=== PATIENT | female | born 1965 | race Caucasian/White ===

== ENCOUNTER 2019-11-25 09:43 | Emergency (ER) | payer SELFPAY ==
[2019-11-25 09:46] VITALS: BP 142/81; PULSE 107; RESP 20; TEMP 37.2; O2SAT 99; BMI 36.6
--- NOTE | 2019-11-25 09:49 | DI.RAD.S_ITS ---
PROCEDURE: XR CHEST 2V INDICATIONS: cough, fever TECHNIQUE: 2 views of the chest were acquired. COMPARISON: [facility], , CHEST 2 VIEW, 07/22/2013, 14:12. FINDINGS: Surgical changes and devices: A right-sided Port-A-Cath central line is identified with the tip overlying the high superior vena cava. Lungs and pleura: The original the lungs has significantly improved in the interim. No definite area pulmonary consolidation is identified. However, interstitial prominence within the right infrahilar region is noted. There is no effusion or pneumothorax. Mediastinum: Mediastinal contours are normal. Heart size is normal. There is aortic atherosclerosis. Bones and chest wall: No suspicious bony abnormalities. Soft tissues appear unremarkable. IMPRESSION: Vague interstitial prominence within the right infrahilar region may represent pneumonia. Please correlate clinically. Dictated by: Hossein Lopez M.D. on 11/25/2019 at 9:13 Approved by: Hossein Lopez M.D. on 11/25/2019 at 9:14
--- NOTE | 2019-11-25 09:51 | ED_ITS ---
HPI - URI/Sore Throat General Chief Complaint: Upper Respiratory Symptoms Stated Complaint: cold/bad tooth Time Seen by Provider: 11/25/19 09:43 Source: patient Mode of arrival: Ambulatory Limitations: no limitations History of Present Illness HPI Narrative: 54-year-old female smoker presents with a chief complaint of about 2 weeks of runny nose, sore throat and cough with occasional sputum production subjective fever and chills. She denies any headache or N/V. Additionally she complains of poor widespread dentition and fluctuant mass next to her premolars on the left bottom which she was able to successfully drain an abscess with a sterilized pin. She has significant improvement in her pain and swelling but also is concerned for obvious reasons about a dental abscess. MD Complaint: fever and cough Onset (ago): week(s) Duration: constant Severity: moderate Relieving factors: nothing Exacerbating factors: nothing Description of mucous: yellow Able to tolerate fluids by mouth: Yes Associated symptoms: fever, nasal congestion, sore throat and cough Treatments prior to arrival: none Related Data Home Medications Medication Instructions Recorded Confirmed [TRANSDERMAL COMPOUND] 0 unit TOPICAL BID #0 04/11/11/25/19 methadone 10 mg PO DAILY 11/25/19 11/25/19 oxycodone 20 mg PO Q4H 11/25/19 11/25/19 Previous Rx's Medication Instructions Recorded clindamycin HCl 300 mg PO TID 10 Days #30 cap 11/25/19 doxycycline hyclate 100 mg PO BID #20 tab 11/25/19 Allergies Allergy/AdvReac Type Severity Reaction Status Date / Time PENICILLIN Allergy Unknown Uncoded 01/06/18 13:04 From VICODIN AdvReac Unknown Uncoded 01/06/18 13:04 Review of Systems Constitutional Constitutional: Reports chills, Denies fatigue, Reports fever(s) (Now resolved), Denies frequent falls, Denies lethargy and Denies weakness Eyes Eyes: Denies change in vision, Denies eye discharge, Denies irritation and Denies loss of vision ENT Ears, Nose, Mouth, and Throat: Denies change in voice, Reports dental pain, Denies dizziness, Denies neck pain, Reports sore throat and Denies throat swelling Cardiovascular Cardiovascular: Denies chest pain, Denies irregular heart rhythm, Denies lightheadedness, Denies palpitations, Denies dyspnea, Denies dyspnea on exertion and Denies orthopnea Respiratory Respiratory: Reports cough, Denies dyspnea, Denies dyspnea on exertion and Denies wheezing Gastrointestinal Gastrointestinal: Denies abdominal pain, Denies change in bowel habits, Denies diarrhea, Denies nausea and Denies vomiting Genitourinary Genitourinary: Denies hematuria, Denies flank pain, Denies urinary incontinence and Denies urinary urgency Musculoskeletal Musculoskeletal: Denies back pain, Denies muscle weakness, Denies neck pain, Denies numbness and Denies tingling Integumentary/Breasts Skin/Breast: Denies pruritus, Denies erythema, Denies rash and Denies wounds Neurologic Neurologic: Denies behavioral changes, Denies confusion, Denies dizziness, Denies frequent falls, Denies loss of vision, Denies numbness, Denies tingling and Denies weakness Psychiatric Psychiatric: Denies anxiety, Denies behavioral changes, Denies confusion, Denies depression, Denies homicidal ideation and Denies suicidal ideation Endocrine Endocrine: Denies fatigue, Denies flushing and Denies palpitations Hematologic/Lymphatic Hematologic/Lymphatic: Denies easy bruising Allergic/Immunologic Allergic/Immunologic: Denies urticaria, Denies throat swelling and Denies wheezing Patient History Social History Smoking Status: Current every day smoker Smoking Status: Current every day smoker Exam Narrative Exam Narrative: GENERAL: [54] year old patient appears stated age. Well- nourished, well-developed patient, in mild distress. HEAD: Atraumatic. Normocephalic. EYES: Pupils equal round and reactive. Extraocular motions intact. No scleral icterus. No injection or drainage. ENT: Nose without bleeding, purulent drainage. Throat without erythema, tonsillar hypertrophy or exudate though there is some postnasal drip. Airway patent. Poor widespread dentition, suspect resolving abscess adjacent to left lower premolars, no longer any fluctuance but minimal swelling and tenderness. No facial swelling NECK: Trachea midline. Non tender CARDIOVASCULAR: Regular rate and rhythm without murmurs, gallops, or rubs. RESPIRATORY: Prolonged expiratory phase with decreased breath sounds bilaterally, a harsh cough can be noted from the door GASTROINTESTINAL: Abdomen soft, non-tender, nondistended. EXTREMITIES: No edema or joint tenderness. BACK: Nontender without deformity or crepitance. No flank tenderness. NEURO: AOx3. SKIN: No rash or erythema of visible areas Initial Vital Signs Initial Vital Signs: Vital Signs Temperature 98.9 F 11/25/19 09:46 Pulse Rate 107 H 11/25/19 09:46 Respiratory Rate 20 11/25/19 09:46 Blood Pressure 142/81 H 11/25/19 09:46 Pulse Oximetry 99 11/25/19 09:46 Course Orders Ordered: ED Orders 11/25/19 09:49 XR chest 2V Stat 11/25/19 09:51 Influenza A & B (PCR) Stat Vital Signs Vital signs: Vital Signs - 8 hr 11/25/19 09:46 Temperature 98.9 F Pulse Rate 107 H Respiratory Rate 20 Blood Pressure 142/81 H Pulse Oximetry 99 MDM - URI/Sore Throat Lab Data Labs: Lab Results 11/25/19 Range/Units 09:51 Influenza A (RT-PCR) Flu a negative (NEGATIVE) Influenza B (RT-PCR) Flu b negative (NEGATIVE) Discharge Plan Departure Patient Disposition: Home Clinical Impression: Dental abscess Pneumonia Qualifiers: Pneumonia type: due to unspecified organism Laterality: right Lung location: middle lobe of lung Qualified Code(s): J18.9 - Pneumonia, unspecified organism Discharge Date/Time: 11/25/19 10:59 Instructions: DI for Pneumonia -- Adult Activity Restrictions/Additional Instructions: *You have been diagnosed with [right middle lobe pneumonia and dental abscess] *What to do: *Take medications as directed *Follow up with your primary care provider in 2-3 days, call for an appointment. Let them know you were seen in the Emergency Department and that we ask that you be seen in follow up *Return to ER if you should have any new, worsening or concerning symptoms Prescriptions: New doxycycline hyclate 100 mg tablet 100 mg PO BID Qty: 20 RF: 0 clindamycin HCl 300 mg capsule 300 mg PO TID 10 Days Qty: 30 RF: 0 No Action [TRANSDERMAL COMPOUND] 0 unit topical BID Qty: 0 RF: 0 methadone 5 mg tablet 10 mg PO DAILY RF: 0 oxycodone 20 mg tablet 20 mg PO Q4H RF: 0 Stand Alone Forms: Work Release Note, Work/School Release
[2019-11-25 10:39] LABS: Influenza A - CEPHEID Flu A NEGATIVE (NEGATIVE); Influenza B - CEPHEID Flu B NEGATIVE (NEGATIVE)
[2019-11-25 10:57] VITALS: BP 115/76; PULSE 99; RESP 18; O2SAT 100
== END 2019-11-25 10:59 | disposition home or self-care (01) ==
PROVIDERS: Emergency Provider Emergency Medicine; Family Provider Physician Assistant
DX: J18.9 Pneumonia, unspecified organism (principal); K04.7 Periapical abscess without sinus
CPT/HCPCS: 71046; 87502; 99283

== ENCOUNTER 2024-08-29 11:28 | Emergency (ER) | payer OTHER, MEDICAID, SELFPAY ==
[2024-08-29] VITALS (15 sets, daily range): BP systolic 110–130; BP diastolic 55–67; PULSE 82–115; RESP 20; TEMP 36.8; O2SAT 56–97; BMI 37.5
--- NOTE | 2024-08-29 11:52 | DI.RAD.S_ITS ---
PROCEDURE: XR CHEST 1V INDICATIONS: wants port Deaccessed at VM left AMA, hypoxia TECHNIQUE: One view of the chest was acquired. COMPARISON: [facility], CR, XR CHEST 2V, 11/25/2019, 9:52. FINDINGS: Surgical changes and devices: Right chest wall port tip projects over the low SVC. Lungs and pleura: Left greater than right multifocal airspace opacities. Peribronchial cuffing. Mediastinum: Mediastinal contours appear normal. Heart size is normal. Bones and chest wall: No suspicious bony lesions. Overlying soft tissues appear unremarkable. IMPRESSION: Left greater than right multifocal airspace opacities, concerning for multifocal pneumonia, aspiration or, drug reaction, less likely pulmonary edema. Dictated by: Tom Montaño M.D. on 08/29/2024 at 12:19 Approved by: Tom Montaño M.D. on 08/29/2024 at 12:19
--- NOTE | 2024-08-29 11:53 | EKG_ITS ---
[address] [address] Test Date: 2024-08-29 Pat Name: Mya Jj Department: Room: Gender: Female Distance Education Director: OP : 1965 Requested By: Order Number: [id number] Reading MD: Jesus Wang MD Measurements Intervals [place] Rate: 97 P: 112 OK: 118 QRS: 190 QRSD: 88 T: 185 QT: 346 QTc: 439 Interpretive Statements Suspect arm lead reversal, interpretation assumes no reversal Normal sinus rhythm Right superior axis deviation Inferior infarct , age undetermined NO PRIOR TRACING Electronically Signed On 08-30-2024 10:34:58 PST by Jesus Wang MD
--- NOTE | 2024-08-29 12:17 | PC.NURSE ---
Pt states that she left [facility] on Thursday08/28/2024. States that [facility]. Pt states that she had 2 heart attacks for which the 2nd heart attack she coded and was trached. States that she would like to have her port de-accessed and that she would like us to clean her feeding tube. Also states that she has some abd pain. Pt requiring 3L NC to maintain O2 sat above 92% and pt tachypneic. Pt would also like to speak with [employer] regarding resources for home health. Pt anxious and fidgeting. Pt a&ox4.
[2024-08-29 12:25] LABS: Add Manual Diff / Slide Review NO; Basophils Absolute Auto 100 /uL (0-100); Basophils Percent Auto 0.9 % (0-2); Eosinophils Absolute Auto 300 /uL (0-450); Eosinophils Percent Auto 3.3 % (2-4); Hematocrit 28.5 % (36-46); Hemoglobin 9.3 g/dL (12.0-16.0); Lymphocytes Absolute Auto 1600 /uL (1100-4500); Lymphocytes Percent Auto 16.1 % (25-40); Mean Corpuscular HGB Conc 32.6 % (30-36); Mean Corpuscular Hemoglobin 30.6 PG (26-34); Mean Corpuscular Volume 93.8 fL (80-100); Monocytes Absolute Auto 1200 /uL (0-900); Monocytes Percent Auto 12.6 % (3-14); Neutrophils Absolute Auto 6500 /uL (1500-7000); Neutrophils Percent Auto 67.1 % (50-75); Platelet Count 508 X10^3/uL (150-400); Red Blood Cell Count 3.04 X10^6/uL (4.0-5.2); Red Cell Distribution Width 16.9 % (11.6-14.8); White Blood Cell Count 9.6 X10^3/uL (4.5-11.0)
--- NOTE | 2024-08-29 12:31 | ED.GENADULT ---
HPI - General Adult General Chief complaint: Abdominal Pain Stated complaint: abd px, wants pic line removed Time Seen by Provider: 08/29/24 11:52 Source: patient Mode of arrival: Wheelchair History of Present Illness HPI narrative: 59-year-old female who presents with complaint of wanting her port de-accessed/removed. Patient states she was at [facility] 468 days for 2 heart attacks had a trach in place she left against medical advice but was supposed to be discharged potentially this Thursday. She states she was discharged home on home O2 although she does not have it with her. Patient is alert, she was appropriate she was not able to answer all questions about her hospitalization but notes she was not conscious for large portions of it states she really does not wish to be here. She states she was discharged with prescriptions, oxygen in his CPAP machine. Patient states her take was removed during her hospitalization, still has a PEG tube but they were not using it she has been eating and drinking. She does note some abdominal pain but denies fevers, no chest pain or shortness of breath. No nausea or vomiting. She denies any GI or urinary symptoms currently. Related Data Home Medications Medication Instructions Recorded Confirmed [TRANSDERMAL COMPOUND] 0 unit topical BID ##0 04/11/11/25/19 methadone 5 mg tablet 10 mg PO DAILY 11/25/19 11/25/19 oxycodone 20 mg tablet 20 mg PO Q4H 11/25/19 11/25/19 Previous Rx's Medication Instructions Recorded doxycycline hyclate 100 mg tablet 100 mg PO BID #20 tabs 11/25/19 amoxicillin 875 mg-potassium 1 tab PO BID #20 tabs 08/29/24 clavulanate 125 mg tablet apixaban 5 mg tablet 5 mg PO BID #20 tabs 08/29/24 lidocaine 4 % topical patch 1 patch topical DAILY PRN pain #10 08/29/24 ea metoprolol tartrate 25 mg tablet 12.5 mg (1/2 x 25 mg) PO BID #20 08/29/24 tabs quetiapine 25 mg tablet 75 mg (3 x 25 mg) PO TID #30 tabs 08/29/24 Allergies Allergy/AdvReac Type Severity Reaction Status Date / Time PENICILLIN Allergy Unknown Uncoded 01/06/18 13:04 From VICODIN AdvReac Unknown Uncoded 01/06/18 13:04 Review of Systems Review of Systems ROS Unobtainable: All systems reviewed & are unremarkable except as noted in HPI and below Patient History Social History Smoking Status: Current every day smoker Smoking Status: Current every day smoker tobacco type: cigarettes alcohol intake frequency: 0-2 drinks per day Substance Use Type: does not use Exam Narrative Exam Narrative: GENERAL: Alert and oriented x three, female in mild distress HEENT: Head normocephalic, atraumatic, EOMI, pupils reactive, face symmetric, moist mucous membranes NECK: Supple, full range of motion, patient has a bandage over what appears to be trach site. Did not want for me to remove it. CARDIOVASCULAR: Slightly tachycardic Regular rate and rhythm without murmurs, rubs or gallops. RESPIRATORY: Breath sounds equal bilaterally, no wheezes rales or rhonchi. No tachypnea or accessory muscle use. ABDOMEN: Soft, patient has some mild left upper quadrant tenderness on exam. She has a PEG tube in place. The genital skin looks very well but there is a small amount of drainage around the PEG tube itself. Normoactive bowel sounds all 4 quadrants. No guarding or rebound, rigidity, no mass : No CVA tenderness EXTREMITIES: Normal range of motion, no clubbing or edema. Neurovascularly intact NEUROLOGICAL: Cranial nerves II through XII grossly intact. Moving all extremities. Patient is ambulating without issue. SKIN: Warm, dry, no petechiae, no rashes or lesions. Initial Vital Signs Initial Vital Signs: Vital Signs Pulse Rate 114 H 08/29/24 11:40 Pulse Oximetry 82 L 08/29/24 11:40 Oxygen Delivery Method Room Air 08/29/24 11:40 Course Orders Ordered: ED Orders 08/29/24 11:50 Consult to ANESTHESIOLOGIST - Audio Visual Arts Director Stat 08/29/24 11:52 XR chest 1V Stat 08/29/24 11:53 EKG-12 Lead Stat 08/29/24 12:07 Complete Blood Count AUTO DIFF Stat Comprehensive Metabolic Panel Stat Lactate (Lactic Acid) Stat NT-proBNP (BNP-Adult 18+) Stat PTT Partial Thromboplastin Antolin Stat Procalcitonin Stat Prothrombin Time INR Stat Troponin & CK Cardiac Panel Stat 08/29/24 12:51 Blood Culture Stat 08/29/24 12:59 Wound Culture and Gram Stain Stat 08/29/24 13:01 CT abdomen pelvis w con Stat 08/29/24 14:20 Consult to Home Health Stat 08/29/24 14:43 Home O2 [Evaluate for home oxygen] NOW 08/29/24 14:56 Urinalysis and Microscopic Stat 08/29/24 15:00 Trop I [Troponin I] Stat Discontinued Medications Furosemide (Furosemide 40 Mg/4 Ml Vial) 40 mg IV NOW ONE Stop: 08/29/24 14:09 Last Admin: 08/29/24 14:15 Dose: 40 mg Documented By: MARTHA Furosemide (Furosemide 40 Mg Tablet) 40 mg PO NOW ONE Stop: 08/29/24 14:50 Last Admin: 08/29/24 14:53 Dose: 40 mg Documented By: MARTHA Heparin Sodium (Porcine) (Heparin 500 Unit/5 Ml Port Flush) 500 unit IV PRN PRN PRN Reason: Flush Lorazepam (Lorazepam 0.5 Mg Tablet) 0.5 mg PO NOW ONE Stop: 08/29/24 13:17 Last Admin: 08/29/24 13:20 Dose: 0.5 mg Documented By: MARTHA Lorazepam (Lorazepam 0.5 Mg Tablet) 0.5 mg PO NOW ONE Stop: 08/29/24 15:36 Last Admin: 08/29/24 15:38 Dose: 0.5 mg Documented By: MARTHA Vital Signs Vital signs: Vital Signs - 8 hr 08/29/24 11:40 08/29/24 11:41 08/29/24 11:41 Temperature Pulse Rate 114 H 112 H Respiratory Rate Blood Pressure 130/67 Pulse Oximetry 82 L 83 L Oxygen Delivery Method Room Air Oxygen Flow Rate 08/29/24 11:46 08/29/24 11:55 08/29/24 12:00 Temperature 98.2 F Pulse Rate 115 H 98 H Respiratory Rate 20 Blood Pressure 130/67 129/60 Pulse Oximetry 80 L 96 Oxygen Delivery Method Room Air Nasal Cannula Oxygen Flow Rate 3 08/29/24 12:44 08/29/24 12:48 08/29/24 12:48 Temperature Pulse Rate 110 H 93 H Respiratory Rate Blood Pressure 127/60 Pulse Oximetry 56 L 95 Oxygen Delivery Method Oxygen Flow Rate 08/29/24 13:00 08/29/24 13:00 08/29/24 13:30 Temperature Pulse Rate 92 H Respiratory Rate Blood Pressure 113/55 L Pulse Oximetry 95 96 Oxygen Delivery Method Nasal Cannula Oxygen Flow Rate 3 08/29/24 13:30 08/29/24 13:33 08/29/24 13:33 Temperature Pulse Rate 82 88 Respiratory Rate Blood Pressure 128/61 Pulse Oximetry 96 95 Oxygen Delivery Method Oxygen Flow Rate 08/29/24 13:55 08/29/24 13:55 08/29/24 14:00 Temperature Pulse Rate 87 Respiratory Rate Blood Pressure 113/56 L 110/56 L Pulse Oximetry 97 Oxygen Delivery Method Oxygen Flow Rate 08/29/24 14:00 08/29/24 14:30 08/29/24 15:00 Temperature Pulse Rate 85 87 89 Respiratory Rate Blood Pressure Pulse Oximetry 96 95 96 Oxygen Delivery Method Nasal Cannula Oxygen Flow Rate 3 3 08/29/24 17:33 Temperature Pulse Rate Respiratory Rate 20 Blood Pressure Pulse Oximetry 93 Oxygen Delivery Method Room Air Oxygen Flow Rate 3 Medical Decision Making Lab Data 08/29/24 12:07 08/29/24 12:07 Labs: Lab Results 08/29/24 08/29/24 08/29/24 Range/Units 12:07 14:56 15:00 WBC 9.6 (4.5-11.0) X10^3/uL RBC 3.04 L (4.0-5.2) X10^6/uL Hgb 9.3 L (12.0-16.0) g/dL Hct 28.5 L (36-46) % MCV 93.8 (80-100) fL MCH 30.6 (26-34) PG MCHC 32.6 (30-36) % RDW 16.9 H (11.6-14.8) % Plt Count 508 H (150-400) X10^3/uL Neut % (Auto) 67.1 (50-75) % Lymph % (Auto) 16.1 L (25-40) % [place] % (Auto) 12.6 (3-14) % Eos % (Auto) 3.3 (2-4) % Baso % (Auto) 0.9 (0-2) % Neut # (Auto) 6500 (8240-7381) /uL Lymph # (Auto) 1600 (7564-5262) /uL [place] # (Auto) 1200 H (0-900) /uL Eos # (Auto) 300 (0-450) /uL Baso # (Auto) 100 (0-100) /uL PT 17.3 H (9.4-12.5) SECONDS INR 1.5 H (0.9-1.3) APTT 38 H (25.1-36.5) SECONDS Sodium 132 L (137-145) mmol/L Potassium 4.4 (3.4-5.1) mmol/L Chloride 98 (98-107) mmol/L Carbon Dioxide 26 (22-32) mmol/L BUN 18 H (7-17) mg/dL Creatinine 0.83 (0.52-1.04) mg/dL Estimated GFR > 60 (>60) mL/min BUN/Creatinine Ratio 21.7 (6-22) Glucose 145 H (70-100) mg/dL Lactate 1.2 (0.7-2.1) mmol/L Calcium 8.4 (8.4-10.2) mg/dL Total Bilirubin 0.6 (0.2-1.3) mg/dL AST 36 (14-36) IU/L ALT 24 (<35) IU/L Alkaline Phosphatase 113 (38-126) U/L Total Creatine Kinase 62 (30-135) U/L Troponin I 0.098 H 0.093 H (0.01-0.034) ng/mL NT-Pro-B Natriuret Pep 5410 H (<125) pg/mL Total Protein 7.3 (6.3-8.2) g/dL Albumin 3.8 (3.5-5.0) g/dL Globulin 3.5 (1.7-4.1) g/dL Albumin/Globulin Ratio 1.1 (1.0-2.8) Procalcitonin 0.147 (<0.5) ng/mL Urine Color Yellow Urine Appearance Clear Urine pH 6.0 (4.5-8.0) Ur Specific [place] 1.010 (1.000-1.035) Urine Protein Negative (Negative) Urine Glucose (UA) Negative (Negative) g/dL Urine Ketones Negative (NEGATIVE) Urine Occult Blood Trace-intact (Negative) Urine Nitrate Negative (Negative) Urine Bilirubin Negative (NEGATIVE) Urine Urobilinogen 0.2 (0.2) E.U./dL Ur Leukocyte Esterase Negative (NEGATIVE) Urine RBC 0-1/hpf (0-5/HPF) Urine WBC 1-5/hpf (0-5/HPF) Ur Squamous Epith Cells 5-10 /hpf H (0-5/HPF) Urine Bacteria Many (>30) H (None) Hyaline Casts 0-1/lpf (None) Urine Mucus 2+ H (Negative) Ur Culture Indicated? Cult not indicated Vol Urine Centrifuged 10ml (spun) Imaging Data CT scan - abdomen/pelvis: Radiologist's Impression: Close Abdomen/Pelvis CT (Signed) Tom Montaño - 08/29/24 Chest X-Ray (Signed) Tom Montaño - 08/29/24 [place] [address] CT Scan Report Signed Patient: Mya Jj MR#: [id number] : 1965 Acct:[id number] Age/Sex: 59 / F Date of Service: 08/29/24 Loc: ED Accession Number: [id number] Procedure: CT abdomen pelvis w con Ordering Provider: Radha Bennett D.O. PROCEDURE: CT ABDOMEN PELVIS W CON INDICATIONS: LUQ abd pain, has peg, TECHNIQUE: After the administration of intravenous contrast, axial sections acquired from the lung bases to the pubic symphysis. Coronal and sagittal reformats were performed. For radiation dose reduction, the following was used: automated exposure control, adjustment of mA and/or kV according to patient size. COMPARISON: [facility], CT, CT ANGIO CHEST PE, 06/20/2024, 0:42. FINDINGS: Image quality: Diagnostic. Lower Chest: Perivascular ground-glass nodules. Small, loculated left-sided pleural effusion. ABDOMEN: Liver: No solid mass. Gallbladder: No radiopaque gallstones or wall thickening. Biliary ducts: No biliary dilation. Pancreas: No ductal dilation. Spleen: Size is within normal limits. Adrenal Glands: No adrenal nodules. Kidneys and Ureters: No hydronephrosis. No solid mass. No complex renal cystic lesion which requires follow up. Stomach and Bowel: Normal colonic caliber, without significant wall thickening. Normal appendix. Colonic diverticulosis without evidence of diverticulitis. Percutaneous gastrostomy tube. Peritoneum: No abnormal intraperitoneal fluid. No free air. Ventral Wall: No significant ventral hernia. Abdominal Nodes: No retroperitoneal or mesenteric adenopathy by size criteria. Vessels: Aorta and inferior vena cava are normal in size. PELVIS: Pelvic Organs: Unremarkable. Bladder: Perivesicular fat stranding and wall thickening. Submucosal fat deposition of the bladder wall. Pelvic Nodes: No enlarged lymph nodes. Miscellaneous: No inguinal hernias are seen. Bones: No aggressive osseous abnormality. Degenerative disc disease of the lumbar spine. IMPRESSION: Perivesicular fat stranding and wall thickening, suggestive of cystitis. Correlate with urinalysis. Submucosal fat deposition of the bladder wall is present, usually indicating chronic infection. Colonic diverticulosis without evidence of diverticulitis. Peribronchovascular ground-glass nodules in the lung bases, concerning for atypical pneumonia. Small, loculated left-sided pleural effusion. Dictated by: Tom Montaño M.D. on 08/29/2024 at 14:22 Approved by: Tom Montaño M.D. on 08/29/2024 at 14:25 ECG Data Attestation: I personally reviewed and interpreted this ECG as follows: Interpretation: Sinus rhythm, rate of 97 AL 118 QRS 88 QTC of [address] changes. MDM Narrative Medical decision making narrative: 59-year-old female with recent hospitalization [facility] sounds like she had a significant prolonged hospitalization patient had VFib arrest, STEMI hospitalization was ultimately discharged but developed aspiration had prolonged respiratory failure and had a trach and feeding tube placed. She reports having left Against Medical Advice yesterday morning but is still requiring oxygen. Took some time to obtain these records but ultimately were able to. He was reviewed. Patient did improve her O2 to 96% on 3 L nasal cannula. Evaluation was made with the patient while on O2, tachycardia also improved. She was ambulating about the department without issue. Chest x-ray shows possible multifocal pneumonia CBC shows a white count of 9.6 hemoglobin of 9.3 platelets of 508, patient's other chemistries are still pending. Discussed I would like patient to stay for these and to get further information. INR is 1.5 sodium is 132 potassium 4.4 chloride 98 CO2 of 26 BUN 18 creatinine 0.83 glucose of 145 lactate 1.2 LFTs are negative troponin 0.098 with a BNP of 5410, procalcitonin 0.147. Repeat troponin is stable at 0.093 CT abdomen pelvis obtained as patient has been having some left upper quadrant tenderness. She has a PEG tube in place. Perivesicular fat stranding and wall thickening suggesting cystitis submucosal fat disposition bladder wall present usually indicating chronic infection, colonic diverticulosis without evidence diverticulitis peribronchovascular ground-glass nodules on lung base concerning for atypical pneumonia. Small loculated left-sided pleural effusion. Culture was obtained from around the PEG tube. There has no surrounding cellulitis on exam. There is a scant amount of drainage. Patient states she was going to talk to a friend, she states she will be back and 5 minutes and did return. Her friend who she was staying with did also eventually return as well. Reviewed with the patient her troponin is indeterminate but it will have any priors for comparison would like to repeat she was tender on examination like to obtain a CT abdomen pelvis. ANESTHESIOLOGIST met with patient and friend at bedside they are interested in home health care would be happy to provide. Patient is able to maintain with 2-3 L of O2 without any hypoxia, her tachycardia is not present. Respiratory therapy evaluated patient can set up for home O2. Discussed with patient was finally able to obtain her discharge results had pretty significant hospital stay but appears that she was discharged home on room air. She was discharged home on 81 mg aspirin atorvastatin 40 mg daily, ticagrelor 90 mg twice daily on apixaban 5 mg twice daily as well as metoprolol 12.5 mg daily and spironolactone 12.5 mg daily patient is also continue with quetiapine 75 mg every 8 hours and valproic acid 100 mg 3 times a day. Patient does not express any thoughts to harm herself or others she is accompanied by a friend who she has been staying with. There maybe a component of fluid overload and she should be seen promptly has not outpatient if she is not willing to stay. She likely has a component of CHF on top of her multifocal pneumonia that is appears to be stable or improving according to comparison of her chart and today. Discussed with patient she was not agreeable to stay here or to be transferred back. Sounds like she was still on O2 when she was discharged and not discharged home on oxygen but does have a CPAP. Her friend is at bedside she was staying with would be agreeable to home health care if available. ANESTHESIOLOGIST also setting up follow up with primary care in the short term as patient does not have anyone in place. RT setting up home O2. Patient's labs are fairly stable from what I can tell but her BNP is somewhat elevated. She was missing her several of her medications including her diuretics spironolactone. Her friend and I reviewed her home medications she was missing several so we will send these to the pharmacy Has potential cystitis on CT imaging as well as urinalysis.. So we will give an oral antibiotic. Strict return precautions discussed with patient do not recommend that she be discharged home but she was adamant although she has been working with her friend and been agreeable to treatment here in the department. Nursing also flushed her PEG tube. Her port was accessed, had difficulty with flushing or pulling blood off of it for repeat troponin was flushed with heparin but may not be effective. Discharge Plan Departure Patient Disposition: Home Clinical Impression: Hypoxemia Activity Restrictions/Additional Instructions: It is recommended that you stay for further evaluation but your labs overall are stable although you appear to have some potential fluid overload and your requiring oxygen today. As you have elected to discharge home you have been set up with home O2 with respiratory therapy. Your workup today does show some changes consistent with UTI, you have been prescribed an antibiotic. Our high school social studies tutor is setting up a follow up appointment with you with primary care. They will touch base about the time and date of your appointment. Sent prescriptions for your labs to [facility]. These are based on your medication list from [facility]. You should be taking atorvastatin 40 mg daily Pantoprazole 40 mg daily Valproic acid 1000 mg 3 times daily Quetiapine 75 mg every 8 hours Apixaban 5 mg twice daily Aspirin 81 mg daily Folic acid 1 mg daily Lidocaine 4% topical 1 patche daily as needed Metoprolol tartrate 12.5 mg twice daily Spironolactone 12.5 mg daily Polyethylene glycol 17 g daily as needed. Prescriptions were sent for your quetiapine, apixaban, metoprolol and lidocaine patches to [facility] in [place]. There has also a new additional antibiotic to take until completed for potential UTI. You can return at any time for new chest pain, shortness of breath, lightheadedness or passing out, fevers, persistent vomiting, new or worsening abdominal back or flank pain or other new or concerning changes. Prescriptions: New quetiapine 25 mg tablet 75 mg PO TID Qty: 30 0RF apixaban 5 mg tablet 5 mg PO BID Qty: 20 0RF metoprolol tartrate 25 mg tablet 12.5 mg PO BID Qty: 20 0RF amoxicillin-pot clavulanate 875-125 mg tablet 1 tab PO BID Qty: 20 0RF lidocaine 4 % adhesive patch,medicated 1 patch topical DAILY PRN (Reason: pain) Qty: 10 0RF No Action [TRANSDERMAL COMPOUND] 0 unit topical BID Qty: 0 Patient Comments: need to confirm if still using and clarify ingredients. 11/25/2019 doxycycline hyclate 100 mg tablet 100 mg PO BID Qty: 20 0RF methadone 5 mg tablet 10 mg PO DAILY Patient Comments: need dose verified. 11/25/2019 oxycodone 20 mg tablet 20 mg PO Q4H Referrals: Ana Rosa Richards PA-C [Family Provider] - Stand Alone Forms: Patient Portal/API, Against Medical Advice, Patient Portal/API/Survey
[2024-08-29 12:32] LABS: INR 1.5 (0.9-1.3); Prothrombin Time 17.3 SECONDS (9.4-12.5)
--- NOTE | 2024-08-29 12:36 | PC.NURSE ---
Addendum entered by Sharon Ratliff R.N. 08/29/24 12:48: 1241 pt arrived back to ED Original Note: Pt states that she wants to leave and everything is taking too long. Dr Bennett at bedside to discuss all the risks involved with leaving AMA. Offered to de-access pt's port and pt refused and walked out. Pt anxious and restless. Declined vitals.
[2024-08-29 12:37] LABS: Lactate (Lactic Acid) 1.2 mmol/L (0.7-2.1)
[2024-08-29 12:38] LABS: Alanine Aminotransferase 24 IU/L (<35); Albumin 3.8 g/dL (3.5-5.0); Albumin Globulin Ratio 1.1 (1.0-2.8); Alkaline Phosphatase 113 U/L (38-126); Aspartate Aminotransferase 36 IU/L (14-36); BUN Creatinine Ratio 21.7 (6-22); Bilirubin Total 0.6 mg/dL (0.2-1.3); Blood Urea Nitrogen 18 mg/dL (7-17); Calcium 8.4 mg/dL (8.4-10.2); Carbon Dioxide 26 mmol/L (22-32); Chloride 98 mmol/L (98-107); Creatine Kinase 62 U/L (30-135); Estimated Glomerular Filt Rate > 60 mL/min (>60); Globulin 3.5 g/dL (1.7-4.1); Glucose 145 mg/dL (70-100); HEMOLYSIS 17 (0-50); Potassium 4.4 mmol/L (3.4-5.1); Sodium 132 mmol/L (137-145); Total Protein 7.3 g/dL (6.3-8.2)
[2024-08-29 12:41] LABS: PTT Partial Thromboplastin Tim 38 SECONDS (25.1-36.5)
[2024-08-29 12:48] LABS: NT-proBNP (BNP-Adult 18+) 5410 pg/mL (<125)
[2024-08-29 12:50] LABS: Troponin I 0.098 ng/mL (0.01-0.034)
[2024-08-29 12:55] LABS: Procalcitonin 0.147 ng/mL (<0.5)
--- NOTE | 2024-08-29 13:01 | DI.CT.S_ITS ---
PROCEDURE: CT ABDOMEN PELVIS W CON INDICATIONS: LUQ abd pain, has peg, TECHNIQUE: After the administration of intravenous contrast, axial sections acquired from the lung bases to the pubic symphysis. Coronal and sagittal reformats were performed. For radiation dose reduction, the following was used: automated exposure control, adjustment of mA and/or kV according to patient size. COMPARISON: [facility], CT, CT ANGIO CHEST PE, 06/20/2024, 0:42. FINDINGS: Image quality: Diagnostic. Lower Chest: Perivascular ground-glass nodules. Small, loculated left-sided pleural effusion. ABDOMEN: Liver: No solid mass. Gallbladder: No radiopaque gallstones or wall thickening. Biliary ducts: No biliary dilation. Pancreas: No ductal dilation. Spleen: Size is within normal limits. Adrenal Glands: No adrenal nodules. Kidneys and Ureters: No hydronephrosis. No solid mass. No complex renal cystic lesion which requires follow up. Stomach and Bowel: Normal colonic caliber, without significant wall thickening. Normal appendix. Colonic diverticulosis without evidence of diverticulitis. Percutaneous gastrostomy tube. Peritoneum: No abnormal intraperitoneal fluid. No free air. Ventral Wall: No significant ventral hernia. Abdominal Nodes: No retroperitoneal or mesenteric adenopathy by size criteria. Vessels: Aorta and inferior vena cava are normal in size. PELVIS: Pelvic Organs: Unremarkable. Bladder: Perivesicular fat stranding and wall thickening. Submucosal fat deposition of the bladder wall. Pelvic Nodes: No enlarged lymph nodes. Miscellaneous: No inguinal hernias are seen. Bones: No aggressive osseous abnormality. Degenerative disc disease of the lumbar spine. IMPRESSION: Perivesicular fat stranding and wall thickening, suggestive of cystitis. Correlate with urinalysis. Submucosal fat deposition of the bladder wall is present, usually indicating chronic infection. Colonic diverticulosis without evidence of diverticulitis. Peribronchovascular ground-glass nodules in the lung bases, concerning for atypical pneumonia. Small, loculated left-sided pleural effusion. Dictated by: Tom Montaño M.D. on 08/29/2024 at 14:22 Approved by: Tom Montaño M.D. on 08/29/2024 at 14:25
[2024-08-29] MEDS: LORazepam 0.5 MG TABLET PO ×2 (13:20→15:38)
--- NOTE | 2024-08-29 13:29 | PC.NURSE ---
Pt declines teletypesetter monitor. States that she will use o2 sensor.
[2024-08-29] MEDS: FUROSEMIDE 40 MG/4 ML VIAL IV (14:15)
[2024-08-29] MEDS: FUROSEMIDE 40 MG TABLET PO (14:53)
--- NOTE | 2024-08-29 14:58 | PC.NURSE ---
Addendum entered by Sharon Ratliff R.N. 08/29/24 15:06: Pt anxious and very restless. Original Note: Pt requiring 3L o2 to maintain o2 sat above 92%. Pt remains anxious and stressed, but follows commands and answers all questions appropriately. Pt a&Ox4. Pt requires reassurance and explanations of medical interventions.
[2024-08-29 15:16] LABS: Appearance Urine UA CLEAR; Bilirubin Urine UA NEGATIVE (NEGATIVE); Color Urine UA YELLOW; Glucose Urine UA NEGATIVE (Negative); Ketones Urine UA NEGATIVE (NEGATIVE); Leukocyte Esterase Urine UA NEGATIVE (NEGATIVE); Nitrite Urine UA NEGATIVE (Negative); Occult Blood Urine UA TRACE-INTACT (Negative); Protein Urine UA NEGATIVE (Negative); Urobilinogen Urine UA 0.2 E.U./dL (0.2)
[2024-08-29 15:29] LABS: Bacteria Urine Many (>30); Culture Indicated Urine Cult Not Indicated; Hyaline Casts Urine 0-1/LPF; Mucus Urine 2+ (Negative); RBC Urine 0-1/HPF (0-5/HPF); Squamous Epithelial Cell Urine 5-10 /HPF (0-5/HPF); Urine Volume 10mL (spun); WBC Urine 1-5/HPF (0-5/HPF)
[2024-08-29 15:33] LABS: Troponin I 0.093 ng/mL (0.01-0.034)
--- NOTE | 2024-08-29 16:44 | CM.SWNOTE ---
Addendum entered by REYES Villarreal 08/29/24 17:48: PCP appt established with Transitional Care Management with Dr. De Luna at [address] on Thursday, 08/31 at 1:00pm. ED COOLING PAN TENDER notified pt via friend, Rajwinder; verbalized understanding. KIERSTEN Andino Original Note: ED COOLING PAN TENDER Note: Pt is a 59yo female, resident of [place], presented to the ED today for abdominal pain, hypoxemia. Pt lives in an apartment but is currently staying with her friend, Rajwinder. Pt's insurance is [employer] and Medicaid. ED COOLING PAN TENDER attempting to coordinate PCP establishment. Reviewed chart and discussed with ED staff for pt's medical status. COOLING PAN TENDER consulted due to no caregiver and hopeful to establish home health care. Per [facility], pt had a recent complex hospitalization at [facility] and [facility] in [place]; pt was not able to establish necessary home health care post-discharge. ED COOLING PAN TENDER met w/patient at bedside; introduced self and role. Present in the room is pt's friend, Rajwinder Young (ph#[phone]). Pt chart updated with new contact and updated address. Pt noted that she does not have a phone and her friend will be main way of contacting her. Patient was found in chair, alert and oriented, cooperative with assessment. Pt stated preference to discharge home, requesting home health referral for initial care needs. ED COOLING PAN TENDER sent initial referral to [facility] and [facility] , it is reported that due to insurance and acuity, pt is not accepted for home health. ED COOLING PAN TENDER sent referral to [employer], Yanick Vasquez, for possible caregiver resource referrals in the home or other community resources. ED COOLING PAN TENDER sent referral to Aging and Disability Resources with [facility], spoke with Magdalena Yates, Aging and Disability Resource (ADR) specialist (ph# [phone]). Provided pt's contact information to complete needs assessment. ED COOLING PAN TENDER discussed pt with Transitional Care Management team, hopeful to establish care with Dr. De Luna; to schedule appt with pt as soon as available. ED COOLING PAN TENDER provided printed contacts for referrals above and discussed that they will be in contact within the next few days. Plan: Anticipating discharge home with friend, follow up with PCP, [facility] and Community Resources, [employer]. ED COOLING PAN TENDER following closely for coordination of discharge plans. PAUL Andino
== END 2024-08-29 17:35 | disposition home or self-care (01) ==
PROVIDERS: Emergency Provider Emergency Medicine; Family Provider Physician Assistant
DX: R09.02 Hypoxemia (principal); R00.0 Tachycardia, unspecified; R10.12 Left upper quadrant pain
CPT/HCPCS: 36415; 71045; 74177; 80053; 81001; 82550; 83605; 83880; 84145; 84484; 85025; 85610; 85730; 87040; 87070; 87077; 87147; 87186; 87205; 93005; 93010; 96374; 99285; J1940; Q9967

== ENCOUNTER 2024-08-30 10:28 | Emergency (ER) | payer OTHER, MEDICAID, SELFPAY ==
[2024-08-30 10:40] VITALS: BP 134/61; PULSE 94; RESP 18; TEMP 35.6; O2SAT 99; BMI 33.8
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
[2024-08-30] MEDS: LORazepam 0.5 MG TABLET 1 MG PO (10:55)
[2024-08-30 11:31] VITALS: PULSE 84; RESP 18; TEMP 36.1; O2SAT 98
== END 2024-08-30 11:33 | disposition home or self-care (01) ==
PROVIDERS: Emergency Provider Emergency Medicine; Family Provider Physician Assistant
DX: Z76.0 Encounter for issue of repeat prescription (principal); J96.10 Chronic respiratory failure, unspecified whether with hypoxia or hypercapnia; F41.9 Anxiety disorder, unspecified
CPT/HCPCS: 99284

== ENCOUNTER 2024-08-31 13:42 | Emergency (ER) | payer OTHER, MEDICAID, SELFPAY ==
[2024-08-31 14:14] VITALS: BP 129/59; PULSE 94; RESP 20; TEMP 37; O2SAT 93; BMI 35.1
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
--- NOTE | 2024-09-02 11:54 | CM.SWNOTE ---
ED SHEET METAL JOURNEYMAN Follow Up Note SHEET METAL JOURNEYMAN receives voicemails from patient's friend who is caring for patient (Sangeetha ph.# [phone]) She has questions about setting patient up for food and money resources from [facility] and states she plans to take patient there today. SHEET METAL JOURNEYMAN encourages them to go in person to [facility], SHEET METAL JOURNEYMAN encourages them to scrap picker rx from [facility] as well. Jennifer Bernabe, CARPET CLEANING TECHNICIAN
== END 2024-08-31 14:32 | disposition left against medical advice (07) ==
PROVIDERS: Emergency Provider Emergency Medicine; Family Provider Physician Assistant; PCP Family Medicine
DX: R06.02 Shortness of breath (principal); V87.8XXA Person injured in other specified noncollision transport accidents involving motor vehicle (traffic), initial encounter; F17.210 Nicotine dependence, cigarettes, uncomplicated
CPT/HCPCS: 99281

== ENCOUNTER 2024-09-04 16:22 | Emergency (ER) | payer OTHER, MEDICAID, SELFPAY ==
[2024-09-04 16:25] VITALS: BP 118/74; PULSE 94; RESP 18; TEMP 36.5; O2SAT 98; BMI 36.6
--- NOTE | 2024-09-04 16:40 | PC.NURSE ---
Patient states she is wanting more ativan and ran out. She reports feeling SOB for past 45 mins. She is alert, oriented and is speaking in full word sentences. Respirations 19. RT called. Hx of a trach, port and drain from abdomen. She denies wanting an IV or any blood work at this time.
--- NOTE | 2024-09-04 16:43 | DI.RAD.S_ITS ---
PROCEDURE: XR CHEST 1V INDICATIONS: Shortness of breath TECHNIQUE: One view of the chest was acquired. COMPARISON: [facility], CR, XR CHEST 1 VIEW, 07/04/2024, 1:33. [facility], CR, XR CHEST 1 VIEW, 07/07/2024, 20:58. [facility], CR, XR CHEST 1V, 08/29/2024, 11:55. FINDINGS: Surgical changes and devices: Right-sided Port-A-Cath in place surgical clips in the left axilla Lungs and pleura: Minimal blunting the left costophrenic angle Mediastinum: Cardiomegaly. Bones and chest wall: No suspicious bony lesions. Overlying soft tissues appear unremarkable. IMPRESSION: Small left pleural effusion Approved by: Dickson Schroeder M.D. on 09/04/2024 at 16:11
--- NOTE | 2024-09-04 16:45 | PC.NURSE ---
Addendum entered by Golden Best R.N. 09/04/24 16:49: Provider Sabrina made aware of patient complaints and denial of IV/blood work at this time. Original Note: Pt reports feeling wobbly and weak. Also states 10/10 upper back pain.
--- NOTE | 2024-09-04 16:48 | EKG_ITS ---
[address] [address] Test Date: 2024-09-04 Pat Name: Mya Jj Department: Room: Gender: Female Accordion Repairer: OMID : [id number] Requested By: Order Number: [id number] Reading MD: Jesus Wang MD Measurements Intervals [place] Rate: 89 P: 43 LA: 102 QRS: -2 QRSD: 92 T: 0 QT: 368 QTc: 447 Interpretive Statements Sinus rhythm with short LA Electronically Signed On 09-05-2024 7:47:31 PST by Jesus Wang MD
--- NOTE | 2024-09-04 16:53 | PC.NURSE ---
Pt asks for telemetry and pulse ox to be removed. Does not want any monitoring on at this time. Education given by this RN for reasons of why we monitor and patient declines at this time. Pt is A&Ox 4 and ambulates to a chair at bedside. Respirations are even and unlabored.
== END 2024-09-04 17:25 | disposition left against medical advice (07) ==
PROVIDERS: Emergency Provider Emergency Medicine; Family Provider Physician Assistant; PCP Family Medicine
DX: R06.02 Shortness of breath (principal); J90 Pleural effusion, not elsewhere classified; I25.2 Old myocardial infarction
CPT/HCPCS: 71045; 93005; 93010; 99282

== ENCOUNTER 2024-09-05 00:05 | Emergency (ER) | payer OTHER, MEDICAID, SELFPAY ==
--- NOTE | 2024-09-05 00:06 | ED.HEATRA ---
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 Of note, this is patient's 5th visit to the ED since 08/29 and 6th visit overall (once on 08/31 with PCP) for various complaints. Patient last seen earlier today for shortness of breath, requesting ativan from nursing staff, however she left prior to physician evaluation Patient states that she was attempting to cross the road but tripped and fell, skinning her knee. She was picked up off the ground and police escorted patient to her home. Several hours later patient was going to get food from the grocery store when she tripped over the curb, landing on her face. She called 911 for evaluation. Patient currently denying any other complaints at this time. Related Data Home Medications Medication Instructions Recorded Confirmed [TRANSDERMAL COMPOUND] 0 unit topical BID ##0 04/11/08/31/24 methadone 5 mg tablet 10 mg PO DAILY 11/25/19 08/31/24 oxycodone 20 mg tablet 20 mg PO Q4H 11/25/19 08/31/24 metoprolol tartrate 25 mg tablet 25 mg PO BID 08/31/24 08/31/24 ondansetron HCl 4 mg tablet 4 mg PO Q8H PRN 08/31/24 08/31/24 ticagrelor 90 mg tablet (Brilinta) 90 mg PO BID 08/31/24 08/31/24 Previous Rx's Medication Instructions Recorded doxycycline hyclate 100 mg tablet 100 mg PO BID #20 tabs 11/25/19 amoxicillin 875 mg-potassium 1 tab PO BID #20 tabs 08/29/24 clavulanate 125 mg tablet apixaban 5 mg tablet 5 mg PO BID #20 tabs 08/29/24 lidocaine 4 % topical patch 1 patch topical DAILY PRN pain #10 08/29/24 ea metoprolol tartrate 25 mg tablet 12.5 mg (1/2 x 25 mg) PO BID #20 08/29/24 tabs quetiapine 25 mg tablet 75 mg (3 x 25 mg) PO TID #30 tabs 08/29/24 aspirin 81 mg chewable tablet 81 mg PO DAILY #10 tabs 08/30/24 atorvastatin 40 mg tablet 40 mg PO BEDTIME #10 tabs 08/30/24 folic acid 1 mg tablet 1 mg PO DAILY #10 tabs 08/30/24 pantoprazole 40 mg tablet,delayed 40 mg PO DAILY #10 tabs 08/30/24 release polyethylene glycol 3350 17 17 g PO DAILY #119 grams 08/30/24 gram/dose oral powder spironolactone 25 mg tablet 12.5 mg (1/2 x 25 mg) PO DAILY #10 08/30/24 tabs valproic acid (as sodium salt) 250 1,000 mg (20 mL) PO TID 10 days 08/30/24 mg/5 mL (5 mL) oral solution #600 mL Allergies Allergy/AdvReac Type Severity Reaction Status Date / Time PENICILLIN Allergy Unknown Uncoded 08/31/24 13:03 From VICODIN AdvReac Unknown Uncoded 08/31/24 13:03 Patient History Medical History (Updated 09/05/24 @ 01:49 by Radha Del Rio MD) Encounter for medical screening examination Social History Smoking Status: Current every day smoker Smoking Status: Current every day smoker tobacco type: cigarettes alcohol intake frequency: 0-2 drinks per day Exam Initial Vital Signs Initial Vital Signs: Vital Signs Pulse Rate 90 09/05/24 00:07 Respiratory Rate 18 09/05/24 00:07 Blood Pressure 119/68 09/05/24 00:07 Pulse Oximetry 96 09/05/24 00:07 Oxygen Delivery Method Room Air 09/05/24 00:07 Const: Awake, alert, no acute distress, appears chronically unwell HEENT: superficial abrasion bridge of nose, R cheek. PERRL, no ochoa sign, no nasal septal hematoma Cardiac: regular rate, regular rhythm RESP: unlabored, no wheezing MSK: no deformity, full range of motion, pulses equal Skin: Warm, Dry, superficial abrasions R kneecap, bridge of nose, R cheek Neuro: AO x3, CN II-XII grossly intact, moves all extremities Course Orders Ordered: ED Orders 09/05/24 00:08 CT cervical spine wo con Stat CT facial bones wo con Stat CT head/brain wo con Stat Discontinued Medications Lorazepam (Lorazepam 0.5 Mg Tablet) 0.5 mg PO NOW ONE Stop: 09/05/24 00:32 Last Admin: 09/05/24 00:37 Dose: 0.5 mg Documented By: MARIANA Vital Signs Vital signs: Vital Signs - 8 hr 09/05/24 00:07 09/05/24 00:19 Pulse Rate 90 85 Respiratory Rate 18 Blood Pressure 119/68 Pulse Oximetry 96 93 Oxygen Delivery Method Room Air MDM - Head Injury Imaging Data CT scan - head: My Impression: NOTE: CT BRAIN NONCONTRAST DATED 08/16/24 AT [facility] NOTED LEFT FRONTAL INFARCT Radiologist's Impression: PROCEDURE: CT HEAD/BRAIN WO CON INDICATIONS: glf, face injury TECHNIQUE: Noncontrast 4.5 mm thick angled axial sections acquired from the foramen magnum to the vertex, with coronal and sagittal reformats. For radiation dose reduction, the following was used: automated exposure control, adjustment of mA and/or kV according to patient size. COMPARISON: [facility], CT, CT HEAD WITHOUT CONTRAST, 06/20/2024, 0:42. FINDINGS: Image quality: Diagnostic. CSF spaces: Basal cisterns are patent. No extra-axial fluid collections. Ventricles are normal in size and shape. Brain: No midline shift. No intracranial masses or hemorrhage. Area of hypodensity at the left frontal lobe, (2/24). Increased in retrospect. Skull and face: Calvarium and visualized facial bones are intact, without suspicious lesions. Sinuses: Mucosal thickening or mucous retention cyst at the left maxillary sinus. Mastoids are clear. IMPRESSION: 1. No acute intracranial hemorrhage. 2. Area of hypodensity at the left frontal lobe. This could represent subacute on chronic infarct or evolving chronic infarct. Dictated by: Michael Greenberg M.D. on 09/05/2024 at 1:02 Approved by: Michael Greenberg M.D. on 09/05/2024 at 1:09 CT - cervical spine: Radiologist's Impression: PROCEDURE: CT CERVICAL SPINE WO CON INDICATIONS: GLF, ON ELIQUIS, HEAD/FACE INJ TECHNIQUE: Noncontrast 3 mm thick sections acquired from the skull base to the T4 level. Sagittal and coronal reformats were then constructed. For radiation dose reduction, the following was used: automated exposure control, adjustment of mA and/or kV according to patient size. COMPARISON: [facility], CT, CT ABDOMEN PELVIS W CON, 08/29/2024, 13:48. FINDINGS: Image quality: Excellent. Bones: No fractures or dislocations. 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 Vertebral body osteophytes. Prior rib fractures. Soft tissues: Prevertebral soft tissues are normal in thickness. No paravertebral hematomas. No apical pneumothoraces. Left pleural effusion. Right-sided port. IMPRESSION: No displaced fracture or traumatic subluxation. 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 Moderate degenerative changes. Dictated by: Michael Greenberg M.D. on 09/05/2024 at 1:17 Approved by: Michael Greenberg M.D. on 09/05/2024 at 1:21 PROCEDURE: CT FACIAL BONES WO [facility] INDICATIONS: GLF/FACE INJURY TECHNIQUE: Noncontrast 2.5 mm thick axial images acquired from the mandible through the frontal sinuses, with coronal and sagittal reformatting. For radiation dose reduction, the following was used: automated exposure control, adjustment of mA and/or kV according to patient size. COMPARISON: [facility], CT, CT HEAD/BRAIN WO CON, 09/05/2024, 0:44. FINDINGS: Image quality: Excellent. Bones and teeth: Orbital shaw are intact. Sinus shaw show no fracture or deformity. Question nondisplaced right nasal bone fracture. Visualized portions of the mandible demonstrate no fractures or subluxation. Zygomatic arches are intact. Pterygoid plates are intact. Visualized portions of the skull base and auditory canals are intact. Missing dentition. Sinuses: Mucosal thickening or small mucous retention cyst at the left maxillary sinus. Mucosal thickening at the right sphenoid sinus. Mastoid air cells are aerated. Soft tissues: No edema, masses, or fluid collections. Prominent lymph node at the left parotid gland measuring 0.9 cm. No soft tissue lacerations or debris. Vascular: Visualized vascular structures appear normal in the absence of contrast. Bony vascular foramina and canals are intact. IMPRESSION: 1. Question nondisplaced right nasal bone fracture. 2. Prominent left parotid lymph node. Dictated by: Michael Greenberg M.D. on 09/05/2024 at 1:34 Approved by: Michael Greenberg M.D. on 09/05/2024 at 1:40 [facility] Narrative Medical decision making narrative: Falls x 2 today, both mechanical per patient description of fall. On Eliquis. Superficial abrasions noted with oozing blood on nasal bridge and R cheek. Nasal bleeding stopped with surgicel placement. Cheek bleeding stopped with topical application of dermabond. Patient reporting severe claustrophobia in CT scanner, given po ativan with improvement. Subsequently able to tolerate needed scans. CT with possible R nasal bone fracture, no other acute findings. Noted L frontal infarct, this was seen on previous imaging at [facility] 08/16, see hospitalization report. Parotid lymph node enlarged, also seen on previous outside CT imaging. Patient ambulatory with steady gait. Discharged home in stable condition. Discharge Plan Departure Patient Disposition: Home Clinical Impression: Closed fracture nasal bone, Fall (on) (from) other stairs and steps, initial encounter, Current use of continuous churn buttermaker anticoagulation Instructions: DI for Nose Fracture Activity Restrictions/Additional Instructions: You may have a small fracture of your right nasal bone. Take Tylenol and apply ice to your nose for swelling. Avoid blowing your nose or rubbing your nose. Follow up with your primary care doctor. Prescriptions: No Action [TRANSDERMAL COMPOUND] 0 unit topical BID Qty: 0 Patient Comments: need to confirm if still using and clarify ingredients. 11/25/2019 ondansetron HCl 4 mg tablet 4 mg PO Q8H PRN metoprolol tartrate 25 mg tablet 25 mg PO BID Brilinta 90 mg tablet 90 mg PO BID doxycycline hyclate 100 mg tablet 100 mg PO BID Qty: 20 0RF methadone 5 mg tablet 10 mg PO DAILY Patient Comments: need dose verified. 11/25/2019 oxycodone 20 mg tablet 20 mg PO Q4H quetiapine 25 mg tablet 75 mg PO TID Qty: 30 0RF apixaban 5 mg tablet 5 mg PO BID Qty: 20 0RF metoprolol tartrate 25 mg tablet 12.5 mg PO BID Qty: 20 0RF amoxicillin-pot clavulanate 875-125 mg tablet 1 tab PO BID Qty: 20 0RF lidocaine 4 % adhesive patch,medicated 1 patch topical DAILY PRN (Reason: pain) Qty: 10 0RF atorvastatin 40 mg tablet 40 mg PO BEDTIME Qty: 10 0RF pantoprazole 40 mg tablet,delayed release (DR/EC) 40 mg PO DAILY Qty: 10 0RF valproic acid (as sodium salt) 250 mg/5 mL (5 mL) solution 1,000 mg PO TID 10 Days Qty: 600 0RF aspirin 81 mg tablet,chewable 81 mg PO DAILY Qty: 10 0RF folic acid 1 mg tablet 1 mg PO DAILY Qty: 10 0RF spironolactone 25 mg tablet 12.5 mg PO DAILY Qty: 10 0RF polyethylene glycol 3350 17 gram/dose powder 17 g PO DAILY Qty: 119 0RF Referrals: Cherrie Chna DO [Primary Care Provider] - Stand Alone Forms: Patient Portal/API/Survey
[2024-09-05 00:07] VITALS: BP 119/68; PULSE 90; RESP 18; O2SAT 96; BMI 36.6
[2024-09-05 00:19] VITALS: PULSE 85; O2SAT 93
[2024-09-05] MEDS: LORazepam 0.5 MG TABLET PO (00:37)
--- NOTE | 2024-09-05 00:37 | PC.NURSE ---
pt c/o being claustrophobic and unable to tolerate CT scanner, Dr Del Rio informed and new orders noted
--- NOTE | 2024-09-06 14:48 | CM.SWNOTE ---
ED EDUCATION SALES CONSULTANT follow up note EDUCATION SALES CONSULTANT calls patient's friend (patient's phone access) and leaves VM to check in with patient and remind them of patient's PCP appt tomorrow. EDUCATION SALES CONSULTANT leaves VM requesting return call. Jennifer Bernabe, CAREER DEVELOPER
--- NOTE | 2024-09-13 17:06 | CM.SWNOTE ---
ED RETAIL GENERAL MANAGER follow up Note RETAIL GENERAL MANAGER receives call from patient's friend Michelle. It is reported that patient needs assistance signing up for SSI and has a lot of paperwork that needs to be filled out by PCP but patient was informed that they do not accept patient's insurance. It is reported that patient is currently staying in a motel. RETAIL GENERAL MANAGER calls [place] patient case coordinator at PCP office and it is reported that the do not accept [facility] [employer] Medicaid but if patient switches to [employer] or [facility] they can accept patient. RETAIL GENERAL MANAGER requests that [place] f/u with patient's friend regarding this insurance change to set up PCP f/u. Patient was unable to have appt scheduled with current insurance. RETAIL GENERAL MANAGER informs patient's friend Leidy of this with patient consent. It is reported that she will help patient change her insurance. RETAIL GENERAL MANAGER encourages friend and patient to go to [facility] to set up SSI, Leidy states that she has paperwork for PCP to fill out and states she will change patient's insurance first and then coordinate with PCP. Friend Leidy and patient provide contact information for patient's new emergency contacts and supports, RETAIL GENERAL MANAGER adds these contacts to patient's EMR. RETAIL GENERAL MANAGER contacts community pharmacy informaticist Yanick Vasquez regarding patient and requests home visit and follow up with patient regarding this coordination of care. Jennifer Bernabe, CENTER REP
== END 2024-09-05 02:06 | disposition home or self-care (01) ==
PROVIDERS: Emergency Provider Emergency Medicine; Family Provider Physician Assistant; PCP Family Medicine
DX: S02.2XXA Fracture of nasal bones, initial encounter for closed fracture (principal); W10.9XXA Fall (on) (from) unspecified stairs and steps, initial encounter; Z79.01 Long term (current) use of anticoagulants
CPT/HCPCS: 70450; 70486; 72125; 99284

== ENCOUNTER → 2024-10-21 12:52 | Outpatient (CLI) | payer OTHER, MEDICAID, SELFPAY | PROVIDERS: Family Provider Physician Assistant; PCP Family Medicine; Referring Provider Family Medicine; Visit Provider Physician Assistant | DX: K94.29 Other complications of gastrostomy (principal); T81.89XA Other complications of procedures, not elsewhere classified, initial encounter; S31.105A Unspecified open wound of abdominal wall, periumbilic region without penetration into peritoneal cavity, initial encounter; R10.33 Periumbilical pain; I50.9 Heart failure, unspecified; F17.200 Nicotine dependence, unspecified, uncomplicated; Z91.199 Patient's noncompliance with other medical treatment and regimen due to unspecified reason | CPT/HCPCS: 99204; 99213 ==

== ENCOUNTER 2024-10-23 18:36 | Emergency (ER) | payer OTHER, SELFPAY ==
[2024-10-23 18:43] VITALS: BP 101/56; PULSE 101; RESP 18; TEMP 36.4; O2SAT 99; BMI 34.5
--- NOTE | 2024-10-23 19:02 | ED.GENADULT ---
HPI - General Adult General Chief complaint: Abdominal Pain Stated complaint: pick line fell out Time Seen by Provider: 10/23/24 19:01 Source: patient Mode of arrival: Ambulatory History of Present Illness HPI narrative: 59-year-old female with history of PEG tube after cardiac arrest rehab, long since recovered, awaiting surgical appointment for possible removal, 3 days ago the PEG tube fell out, some scant drainage and slight erythema to the wound area, with increasing periumbilical pain. No nausea or vomiting. No fevers or chills. She takes blood thinner Eliquis medication, no blood from the wound known. No trauma injury falls new activities. Related Data Home Medications Medication Instructions Recorded Confirmed [TRANSDERMAL COMPOUND] 0 unit topical BID ##0 04/11/13 08/31/24 ticagrelor 90 mg tablet (Brilinta) 90 mg PO BID 08/31/24 08/31/24 Previous Rx's Medication Instructions Recorded lidocaine 4 % topical patch 1 patch topical DAILY PRN pain #10 08/29/24 ea aspirin 81 mg chewable tablet 81 mg PO DAILY #10 tabs 08/30/24 lisinopril 5 mg tablet 5 mg PO DAILY #60 tabs 09/08/24 quetiapine 25 mg tablet 75 mg (3 x 25 mg) PO TID #90 tabs 10/04/24 valproic acid (as sodium salt) 250 20 mg (0.4 mL) PO TID #473 mL 10/05/24 mg/5 mL oral solution apixaban 5 mg tablet 5 mg PO BID #60 tabs 10/10/24 atorvastatin 40 mg tablet 40 mg PO BEDTIME #30 tabs 10/11/24 metoprolol tartrate 25 mg tablet 25 mg PO BID #60 tabs 10/11/24 polyethylene glycol 3350 17 17 g PO DAILY #119 grams 10/11/24 gram/dose oral powder spironolactone 25 mg tablet 12.5 mg (1/2 x 25 mg) PO DAILY #30 10/11/24 tabs folic acid 1 mg tablet 1 mg PO DAILY #30 tabs 10/12/24 ondansetron HCl 4 mg tablet 4 mg PO Q8H PRN nausea and 10/12/24 vomiting #30 tabs pantoprazole 40 mg tablet,delayed 40 mg PO DAILY #30 tabs 10/12/24 release lorazepam 0.5 mg tablet (Ativan) 0.5 mg PO ONCE PRN anxiety #1 tab 10/21/24 Allergies Allergy/AdvReac Type Severity Reaction Status Date / Time Penicillins Allergy Unknown, Verified 10/23/24 18:43 childhood acetaminophen [From Vicodin] AdvReac Vomiting Verified 10/23/24 18:43 hydrocodone [From Vicodin] AdvReac Vomiting Verified 10/23/24 18:43 Patient History Medical History (Updated 10/23/24 @ 21:43 by Leonidas Reilly MD) Encounter for medical screening examination Social History Smoking Status: Current every day smoker Smoking Status: Current every day smoker tobacco type: cigarettes alcohol intake frequency: 0-2 drinks per day Exam Narrative Exam Narrative: GENERAL: Well-developed patient, in mild distress. HEAD: Atraumatic. Normocephalic. EYES: Pupils equal round and reactive. Extraocular motions intact. No scleral icterus. No injection or drainage. ENT: Nose without bleeding, purulent drainage. Throat without erythema, tonsillar hypertrophy or exudate. Airway patent. NECK: Trachea midline. Non tender CARDIOVASCULAR: Regular rate and rhythm without murmurs, gallops, or rubs. RESPIRATORY: Clear to auscultation. Breath sounds equal bilaterally. No wheezes, rales, or rhonchi. GASTROINTESTINAL: Peg tube not in place, site with scant clear fluid, slight erythema at wound edge. No distention. Mild discomfort periumbilical. No guarding or rebound. Unremarkable bowel tones EXTREMITIES: No edema or joint tenderness. BACK: Nontender without deformity or crepitance. No flank tenderness. NEURO: AOx3. Motor functions grossly nonfocal SKIN: No rash or erythema of visible areas Initial Vital Signs Initial Vital Signs: Vital Signs Temperature 97.5 F L 10/23/24 18:43 Pulse Rate 101 H 10/23/24 18:43 Respiratory Rate 18 10/23/24 18:43 Blood Pressure 101/56 L 10/23/24 18:43 Pulse Oximetry 99 10/23/24 18:43 Oxygen Delivery Method Room Air 10/23/24 18:43 Course Orders Ordered: ED Orders 10/23/24 19:09 CT abdomen pelvis w con Stat 10/23/24 19:20 Wound Culture and Gram Stain Stat 10/23/24 20:05 Complete Blood Count AUTO DIFF Stat Comprehensive Metabolic Panel Stat Lipase Stat Discontinued Medications Heparin Sodium (Porcine) 5,000 (unit/ Sodium Chloride 50 ml) 0 unit IV NOW ONE Stop: 10/23/24 20:53 Last Admin: 10/23/24 20:56 Dose: Not Given Documented By: MARIANA Heparin Sodium (Porcine) (Heparin 500 Unit/5 Ml Port Flush) 500 unit IV PRN PRN PRN Reason: Flush Last Admin: 10/23/24 21:37 Dose: 500 unit Documented By: YANDY Lidocaine/Prilocaine (Lidocaine/Prilocaine 5 Gm) 5 gm TOP NOW ONE Stop: 10/23/24 19:30 Last Admin: 10/23/24 19:48 Dose: 5 gm Documented By: YANDY Vital Signs Vital signs: Vital Signs - 8 hr 10/23/24 18:43 10/23/24 20:47 10/23/24 21:44 Temperature 97.5 F L Pulse Rate 101 H 93 H 89 Respiratory Rate 18 17 18 Blood Pressure 101/56 L 117/54 L 98/65 Pulse Oximetry 99 100 98 Oxygen Delivery Method Room Air Room Air Room Air Medical Decision Making Lab Data Lab results reviewed: Yes I reviewed the patient's lab results. Lab results narrative: White blood cell count 9600, hemoglobin 12.2, platelets adequate. Basic metabolic panel unremarkable. Liver functions and lipase normal. 10/23/24 20:05 10/23/24 20:05 Labs: Lab Results 10/23/24 Range/Units 20:05 WBC 9.6 (4.5-11.0) X10^3/uL RBC 4.15 (4.0-5.2) X10^6/uL Hgb 12.2 (12.0-16.0) g/dL Hct 36.6 (36-46) % MCV 88.3 (80-100) fL MCH 29.3 (26-34) PG MCHC 33.2 (30-36) % RDW 15.1 H (11.6-14.8) % Plt Count 288 (150-400) X10^3/uL Neut % (Auto) 62.8 (50-75) % Lymph % (Auto) 26.4 (25-40) % Dodge % (Auto) 4.4 (3-14) % Eos % (Auto) 5.8 H (2-4) % Baso % (Auto) 0.6 (0-2) % Neut # (Auto) 6000 (3049-3138) /uL Lymph # (Auto) 2500 (6330-6352) /uL Dodge # (Auto) 400 (0-900) /uL Eos # (Auto) 600 H (0-450) /uL Baso # (Auto) 100 (0-100) /uL Sodium 134 L (137-145) mmol/L Potassium 4.3 (3.4-5.1) mmol/L Chloride 104 (98-107) mmol/L Carbon Dioxide 22 (22-32) mmol/L BUN 31 H (7-17) mg/dL Creatinine 0.86 (0.52-1.04) mg/dL Estimated GFR > 60 (>60) mL/min BUN/Creatinine Ratio 36.0 H (6-22) Glucose 98 (70-100) mg/dL Calcium 9.1 (8.4-10.2) mg/dL Total Bilirubin 0.5 (0.2-1.3) mg/dL AST 20 (14-36) IU/L ALT 21 (<35) IU/L Alkaline Phosphatase 100 (38-126) U/L Total Protein 7.8 (6.3-8.2) g/dL Albumin 4.3 (3.5-5.0) g/dL Globulin 3.5 (1.7-4.1) g/dL Albumin/Globulin Ratio 1.2 (1.0-2.8) Lipase 241 (23-300) U/L Imaging Data CT scan - abdomen/pelvis: Radiologist's Impression: [address] [address] [address] Scan Report Signed Patient: Mya Jj MR#: [id number] : 1965 Acct:[id number] Age/Sex: 59 / F Date of Service: 10/23/24 Loc: ED Accession Number: [id number] Procedure: CT abdomen pelvis w con Ordering Provider: Leonidas Reilly MD PROCEDURE: CT ABDOMEN PELVIS W CON INDICATIONS: PEG tube fell out Fri, drainage wound, abd pain TECHNIQUE: After the administration of intravenous contrast, axial sections acquired from the lung bases to the pubic symphysis. Coronal and sagittal reformats were performed. For radiation dose reduction, the following was used: automated exposure control, adjustment of mA and/or kV according to patient size. COMPARISON: [facility], CT, CT ABDOMEN PELVIS W CON, 08/29/2024, 13:48. FINDINGS: Image quality: Diagnostic. Lower Chest: Compared to prior CT 08/29/2024, decreased left pleural effusion. Decreased peribronchovascular ground-glass nodules at the bases consistent with resolving infection. ABDOMEN: Liver: No solid mass. Gallbladder: No radiopaque gallstones or wall thickening. Biliary ducts: No biliary dilation. Pancreas: No ductal dilation. Spleen: Size is within normal limits. Adrenal Glands: No adrenal nodules. Kidneys and Ureters: No hydronephrosis. No solid mass. No complex renal cystic lesion which requires follow up. Stomach and Bowel: Postsurgical changes from prior percutaneous gastrostomy tube. Small hiatal hernia. Normal colonic caliber, without significant wall thickening. Normal caliber appendix. Sigmoid diverticulosis without acute inflammation. Peritoneum: No abnormal intraperitoneal fluid. No free air. Ventral Wall: No significant ventral hernia. Anterior abdominal wall PEG tube track. The no organized fluid collection. Abdominal Nodes: No retroperitoneal or mesenteric adenopathy by size criteria. Vessels: Aorta and inferior vena cava are normal in size. PELVIS: Pelvic Organs: Unremarkable. Bladder: Bladder is decompressed limiting evaluation. Pelvic Nodes: No enlarged lymph nodes. Miscellaneous: No inguinal hernias are seen. Bones: No aggressive osseous abnormality. IMPRESSION: No acute abdominopelvic process. Postsurgical changes from prior percutaneous gastrostomy tube. Colonic diverticulosis without CT evidence of diverticulitis. Compared to prior CT 08/29/2024, decreased small left pleural effusion and ground-glass nodules in the lung bases consistent with resolving pneumonia. Approved by: Dedra Freitas M.D.,Ph.D. on 10/23/2024 at 21:28 MDM Narrative Medical decision making narrative: 59-year-old female with longstanding PEG tube after cardiopulmonary resuscitation event, awaiting surgical consultation for PEG removal, peg actually fell out 3 days ago, with increasing periumbilical discomfort, some clear drainage. Patient concerned there might be deep/inside wound infection. Afebrile, sirs screen negative. Scant serous like fluid from PEG site, minimal tenderness, no crepitance or distention. Labs pending. CT abdomen and pelvis imaging ordered. Screening labs unremarkable. Wound culture sent from serosanguineous fluid from previous peg tube site. CT abdomen and pelvis pending CT abdomen and pelvis showed no acute changes, copy of report provided to patient. Who requested to be discharged. No further workup at this time. Encouraged patient to follow up as planned with their surgical follow up appointment in the next 2-3 days, although PEG tube already removed spontaneously, to reassess at that time for persisting abdominal pain and draining wound, and check on wound culture results. Patient expressed understanding of this plan. Discharged home per her request. Return precautions discussed Discharge Plan Departure Patient Disposition: Home Clinical Impression: Abdominal pain Activity Restrictions/Additional Instructions: History of PEG tube which follow up 3 days ago, some abdominal discomfort in that area, some slight drainage of the wound area, wound culture was sent though clear fluid seemed to be present, hold on antibiotics for now. CT scan showed no acute changes, we reviewed the report, copy of the report given. Follow up with your general surgeon as planned in 2 days, sounds like it might have been for removal of the PEG tube which has spontaneously come out, however you could be checked again for your discomfort and check the results of the wound culture. Return earlier to this/nearest emergency department for any change worsening symptoms or any concerns prior Prescriptions: No Action [TRANSDERMAL COMPOUND] 0 unit topical BID Qty: 0 Patient Comments: need to confirm if still using and clarify ingredients. 11/25/2019 quetiapine 25 mg tablet 75 mg PO TID Qty: 90 2RF valproic acid (as sodium salt) 250 mg/5 mL solution 20 mg PO TID Qty: 473 6RF apixaban 5 mg tablet 5 mg PO BID Qty: 60 0RF atorvastatin 40 mg tablet 40 mg PO BEDTIME Qty: 30 1RF metoprolol tartrate 25 mg tablet 25 mg PO BID Qty: 60 1RF polyethylene glycol 3350 17 gram/dose powder 17 g PO DAILY Qty: 119 0RF spironolactone 25 mg tablet 12.5 mg PO DAILY Qty: 30 1RF ondansetron HCl 4 mg tablet 4 mg PO Q8H PRN (Reason: nausea and vomiting) Qty: 30 6RF pantoprazole 40 mg tablet,delayed release (DR/EC) 40 mg PO DAILY Qty: 30 6RF folic acid 1 mg tablet 1 mg PO DAILY Qty: 30 6RF lorazepam [Ativan] 0.5 mg tablet 0.5 mg PO ONCE PRN (Reason: anxiety) Qty: 1 0RF Rx Instructions: Take 1/2 hour before imaging for claustrophobia concerns. lisinopril 5 mg tablet 5 mg PO DAILY Qty: 60 3RF Brilinta 90 mg tablet 90 mg PO BID lidocaine 4 % adhesive patch,medicated 1 patch topical DAILY PRN (Reason: pain) Qty: 10 0RF aspirin 81 mg tablet,chewable 81 mg PO DAILY Qty: 10 0RF Referrals: Cherrie Chan DO [Primary Care Provider] - Stand Alone Forms: Patient Portal/API/Survey
--- NOTE | 2024-10-23 19:09 | DI.CT.S_ITS ---
PROCEDURE: CT ABDOMEN PELVIS W CON INDICATIONS: PEG tube fell out Fri, drainage wound, abd pain TECHNIQUE: After the administration of intravenous contrast, axial sections acquired from the lung bases to the pubic symphysis. Coronal and sagittal reformats were performed. For radiation dose reduction, the following was used: automated exposure control, adjustment of mA and/or kV according to patient size. COMPARISON: [facility], CT, CT ABDOMEN PELVIS W CON, 08/29/2024, 13:48. FINDINGS: Image quality: Diagnostic. Lower Chest: Compared to prior CT 08/29/2024, decreased left pleural effusion. Decreased peribronchovascular ground-glass nodules at the bases consistent with resolving infection. ABDOMEN: Liver: No solid mass. Gallbladder: No radiopaque gallstones or wall thickening. Biliary ducts: No biliary dilation. Pancreas: No ductal dilation. Spleen: Size is within normal limits. Adrenal Glands: No adrenal nodules. Kidneys and Ureters: No hydronephrosis. No solid mass. No complex renal cystic lesion which requires follow up. Stomach and Bowel: Postsurgical changes from prior percutaneous gastrostomy tube. Small hiatal hernia. Normal colonic caliber, without significant wall thickening. Normal caliber appendix. Sigmoid diverticulosis without acute inflammation. Peritoneum: No abnormal intraperitoneal fluid. No free air. Ventral Wall: No significant ventral hernia. Anterior abdominal wall PEG tube track. The no organized fluid collection. Abdominal Nodes: No retroperitoneal or mesenteric adenopathy by size criteria. Vessels: Aorta and inferior vena cava are normal in size. PELVIS: Pelvic Organs: Unremarkable. Bladder: Bladder is decompressed limiting evaluation. Pelvic Nodes: No enlarged lymph nodes. Miscellaneous: No inguinal hernias are seen. Bones: No aggressive osseous abnormality. IMPRESSION: No acute abdominopelvic process. Postsurgical changes from prior percutaneous gastrostomy tube. Colonic diverticulosis without CT evidence of diverticulitis. Compared to prior CT 08/29/2024, decreased small left pleural effusion and ground-glass nodules in the lung bases consistent with resolving pneumonia. Approved by: Dedra Freitas M.D.,Ph.D. on 10/23/2024 at 21:28
[2024-10-23] MEDS: LIDOCAINE/PRILOCAINE 5 GM TOP (19:48)
[2024-10-23 20:11] LABS: Add Manual Diff / Slide Review NO; Basophils Absolute Auto 100 /uL (0-100); Basophils Percent Auto 0.6 % (0-2); Eosinophils Absolute Auto 600 /uL (0-450); Eosinophils Percent Auto 5.8 % (2-4); Hematocrit 36.6 % (36-46); Hemoglobin 12.2 g/dL (12.0-16.0); Lymphocytes Absolute Auto 2500 /uL (1100-4500); Lymphocytes Percent Auto 26.4 % (25-40); Mean Corpuscular HGB Conc 33.2 % (30-36); Mean Corpuscular Hemoglobin 29.3 PG (26-34); Mean Corpuscular Volume 88.3 fL (80-100); Monocytes Absolute Auto 400 /uL (0-900); Monocytes Percent Auto 4.4 % (3-14); Neutrophils Absolute Auto 6000 /uL (1500-7000); Neutrophils Percent Auto 62.8 % (50-75); Platelet Count 288 X10^3/uL (150-400); Red Blood Cell Count 4.15 X10^6/uL (4.0-5.2); Red Cell Distribution Width 15.1 % (11.6-14.8); White Blood Cell Count 9.6 X10^3/uL (4.5-11.0)
[2024-10-23 20:23] LABS: Alanine Aminotransferase 21 IU/L (<35); Albumin 4.3 g/dL (3.5-5.0); Albumin Globulin Ratio 1.2 (1.0-2.8); Alkaline Phosphatase 100 U/L (38-126); Aspartate Aminotransferase 20 IU/L (14-36); Bilirubin Total 0.5 mg/dL (0.2-1.3); Blood Urea Nitrogen 31 mg/dL (7-17); Calcium 9.1 mg/dL (8.4-10.2); Carbon Dioxide 22 mmol/L (22-32); Chloride 104 mmol/L (98-107); Estimated Glomerular Filt Rate > 60 mL/min (>60); Globulin 3.5 g/dL (1.7-4.1); Glucose 98 mg/dL (70-100); HEMOLYSIS < 15 (0-50); Lipase 241 U/L (23-300); Potassium 4.3 mmol/L (3.4-5.1); Sodium 134 mmol/L (137-145); Total Protein 7.8 g/dL (6.3-8.2)
[2024-10-23 20:47] VITALS: BP 117/54; PULSE 93; RESP 17; O2SAT 100
[2024-10-23 21:44] VITALS: BP 98/65; PULSE 89; RESP 18; O2SAT 98
== END 2024-10-23 21:46 | disposition home or self-care (01) ==
PROVIDERS: Emergency Provider Emergency Medicine; Family Provider Physician Assistant; PCP Family Medicine
DX: T85.848A Pain due to other internal prosthetic devices, implants and grafts, initial encounter (principal)
CPT/HCPCS: 36415; 74177; 80053; 83690; 85025; 87070; 87075; 87077; 87147; 87186; 87205; 99284; J1642; Q9967

== ENCOUNTER → 2024-10-24 07:13 | Outpatient (CLI) | payer OTHER, SELFPAY ==
--- NOTE | 2024-10-24 07:14 | DI.MRI.S_ITS ---
PROCEDURE: MR HEAD/BRAIN WO CON INDICATIONS: follow-up CT results (chronic infarct?), GLF, on anticoag TECHNIQUE: Noncontrast axial T1 spin echo, axial T2 fast spin echo, sagittal and axial FLAIR, coronal T2 fast spin echo, axial gradient echo, axial diffusion and ADC through the brain. COMPARISON: [facility], CT, CT HEAD/BRAIN WO CON, 09/05/2024, 0:44. FINDINGS: Image quality: Diagnostic CSF spaces: Basal cisterns are patent. Lateral ventricles are symmetric. Volume: Volume loss. Periventricular white matter signal abnormality most commonly seen with small vessel disease. These findings are [id number] Brain: There is no acute diffusion restriction or intracranial hematoma. A focal area of FLAIR signal abnormality again seen in the left frontal deep white matter., similar to the hypoattenuation on prior CT Craniofacial structures: Small left paranasal sinus mucous cyst IMPRESSION: No acute infarct or hematoma. Focus of FLAIR signal in the left frontal deep white matter corresponding to CT finding, at this time signal characteristics suggest a chronic infarct Dictated by: Mike Klein M.D. on 10/24/2024 at 9:29 Approved by: Mike Klein M.D. on 10/24/2024 at 9:31
--- NOTE | 2024-10-24 07:27 | DI.ECHO.S_ITS ---
[facility]+ [facility] : : [address] : : Blank ID : : [id number] : : Phone: [phone] Echocardiogram Report + + :Name: BRADLEY LORD Study Date: 10/24/2024 Height: 62 in : :Hospital ReadingLocation: Weight: 180 lb : : Gender: Female BSA: 1.8 m2 : :: 1965 Age: 59 yrs BP: 105/62 mmHg: :Reason For Study: CONGESTIVE HEART FAILURE : :Ordering Physician: DAVID, : :MARYCHUY Performed By: Pieter Renee : :Referring: MARYCHUY HERNANDEZ : + + Interpretation Summary Normal LV size and systolic function. LVEF is 55% Basal inferior akinesis is noted. Normal RV size and function. Normal atrial sizes. No more than mild valvular pathology is noted. Other findings as below. No previous echo images are available for comparison. Procedure: A two-dimensional transthoracic echocardiogram with color flow and Doppler was performed. The study quality was technically good. There is no prior echocardiogram noted for this patient. The patient was in normal sinus rhythm during the exam. Left Ventricle: The left ventricle is normal in size. Left ventricular wall thickness is mildly increased. There is no ventricular septal defect visualized. The left ventricular ejection fraction is normal. Left ventricular ejection fraction is estimated to be 55 +/- 5%. There is basal inferior wall akinesis. Diastolic parameters suggest probable normal left ventricular diastolic function and normal filling pressures. Right Ventricle: The right ventricle is normal in size and function. Atria: The left atrial size is normal. Right atrial size is normal. There is no Doppler evidence for an interatrial shunt. Mitral Valve: The mitral valve is normal in structure and function. There is no mitral regurgitation noted. Aortic Valve: The aortic valve is trileaflet. The aortic valve opens well. No aortic regurgitation is present. Tricuspid Valve: The tricuspid valve leaflets are thin and pliable. There is a trace or physiologic amount of tricuspid regurgitation. Pulmonic Valve: The pulmonic valve leaflets are thin and pliable; valve motion is normal. There is no pulmonic valvular regurgitation. Great Vessels: The aortic root is normal size. The dimensions of the ascending aorta are normal. The pulmonary artery is normal size. The IVC is of normal diameter and collapses greater than 50% with a sniff. This suggests a low right atrial pressure of 3 mm Hg. Pericardium/ Pleura There is no pericardial effusion. There is no pleural effusion. MMode/2D Measurements & Calculations LVIDd: 4.9 cm LVOT diam: 2.1 cm LVIDs: 3.7 cm Ao root diam: 3.1 cm FS: 23.3 % asc Aorta Diam: 3.1 cm EPSS: 1.2 cm IVSd: 1.1 cm LVPWd: 1.1 cm LV velasquez. diameter/BSA (cm/m^2): 2.7 LV sys. diameter/BSA (cm/m^2): 2.0 LA A2 area: 14.0 cm2 RA long axis: 3.6 cm LA A4 area: 13.9 cm2 RA area: 7.9 cm2 LA length (vol): 4.6 cm RA vol: 14.5 ml LA vol: 35.8 ml RA : 7.9 ml/m2 LA vol index: 19.6 ml/m2 IVC diam: 1.7 cm RVD1 (basal): 2.4 cm RVD2 (mid): 2.0 cm TAPSE: 1.5 cm Doppler Measurements & Calculations Ao V2 max: 141.4 cm/sec LVOT Max [place]: 113.9 cm/sec Ao V2 mean: 91.0 cm/sec LV V1 max P.2 mmHg Ao max P.0 mmHg LV V1 VTI: 20.0 cm Ao mean P.8 mmHg JOANN(I,D): 3.1 cm2 Ao V2 VTI: 21.1 cm JOANN(V,D): 2.7 cm2 sev ratio: 0.95 JOANN indexed to BSA (cm^2/m^2): 1.7 MV E max guanako: 43.8 cm/sec TR max guanako: 237.0 cm/sec MV A max gu[place]ako: 70.8 cm/sec TR max P.5 mmHg MV E/A: 0.62 PA V2 max: 95.2 cm/sec Med Peak E' [place]: 4.8 cm/sec PA V2 mean: 71.4 cm/sec E/E' med: 9.1 PA mean P.1 mmHg Lat Peak E' [place]: 8.3 cm/sec PA pr(Accel): 41.3 mmHg E/E' lat: 5.2 E/e' average: 7.2 MV dec time: 0.21 sec SV(LVOT): 66.2 ml Reading Physician:01:49 PM
== END ==
PROVIDERS: Family Provider Physician Assistant; PCP Family Medicine; Referring Provider Family Medicine; Visit Provider Family Medicine
DX: J96.10 Chronic respiratory failure, unspecified whether with hypoxia or hypercapnia (principal); R93.0 Abnormal findings on diagnostic imaging of skull and head, not elsewhere classified; J34.1 Cyst and mucocele of nose and nasal sinus; I50.9 Heart failure, unspecified; R79.89 Other specified abnormal findings of blood chemistry; Z79.01 Long term (current) use of anticoagulants
CPT/HCPCS: 70551; 93306

== ENCOUNTER → 2025-02-01 14:57 | Outpatient (CLI) | payer OTHER, SELFPAY ==
--- NOTE | 2025-02-01 14:58 | DI.RAD.S_ITS ---
PROCEDURE: XR CHEST 2V INDICATIONS: SOB TECHNIQUE: 2 views of the chest were acquired. COMPARISON: [facility], , XR CHEST 1V, 09/04/2024, 16:48. FINDINGS: Surgical changes and devices: Right Port-A-Cath tip noted at the level of the cavoatrial junction. Lungs and pleura: Lungs are clear. No pleural effusions or pneumothorax. Mediastinum: Mediastinal contours are normal. Heart size is normal. Bones and chest wall: No suspicious bony abnormalities. Soft tissues appear unremarkable. IMPRESSION: No acute cardiopulmonary abnormality is seen. Dictated by: Newton Tan M.D. on 02/01/2025 at 23:48 Approved by: Newton Tan M.D. on 02/01/2025 at 23:49
== END ==
PROVIDERS: Family Provider Physician Assistant; PCP Family Medicine; Referring Provider Family Medicine; Visit Provider Family Medicine
DX: R06.02 Shortness of breath (principal); R05.9 Cough, unspecified
CPT/HCPCS: 71046

== ENCOUNTER → 2025-02-09 13:17 | Outpatient (CLI) | payer OTHER, SELFPAY | PROVIDERS: Family Provider Physician Assistant; PCP Family Medicine; Referring Provider Family Medicine; Visit Provider Family Medicine | DX: R06.02 Shortness of breath (principal); Z72.0 Tobacco use; I25.10 Atherosclerotic heart disease of native coronary artery without angina pectoris; R06.09 Other forms of dyspnea; J98.8 Other specified respiratory disorders; R94.2 Abnormal results of pulmonary function studies | CPT/HCPCS: 94060; 94729 ==

== ENCOUNTER 2025-02-16 14:27 | Emergency (ER) | payer OTHER, SELFPAY ==
[2025-02-16 14:32] VITALS: BP 147/75; PULSE 98; RESP 22; TEMP 37; O2SAT 94; BMI 43.9
--- NOTE | 2025-02-16 16:57 | EKG_ITS ---
[facility] [address] [place] [address] Test Date: 2025-02-16 Pat Name: Mya Jj Department: [facility] Room: Gender: Female Clip Riveter: : 1965 Requested By: Order Number: [id number] Reading MD: Figueroa Troy Measurements Intervals [place] Rate: 105 P: 52 AK: 124 QRS: 26 QRSD: 84 T: 44 QT: 334 QTc: 441 Interpretive Statements Sinus tachycardia Electronically Signed On 02-17-2025 19:08:07 PDT by Figueroa Troy
== END 2025-02-16 15:00 | disposition left against medical advice (07) ==
PROVIDERS: Emergency Provider Emergency Medicine; Family Provider Physician Assistant; PCP Family Medicine
DX: M54.50 Low back pain, unspecified (principal); R31.9 Hematuria, unspecified; R06.02 Shortness of breath
CPT/HCPCS: 93005

== ENCOUNTER 2025-02-16 16:38 | Emergency (ER) | payer OTHER, SELFPAY ==
[2025-02-16 16:46] VITALS: BP 132/59; PULSE 102; RESP 16; TEMP 36.6; O2SAT 98; BMI 39.1
--- NOTE | 2025-02-16 17:02 | DI.RAD.S_ITS ---
PROCEDURE: XR CHEST 1V INDICATIONS: Chest Pain TECHNIQUE: One view of the chest was acquired. COMPARISON: [facility], CR, XR CHEST 2V, 02/01/2025, 14:07. FINDINGS: Surgical changes and devices: Right tunneled port device is in place. Lungs and pleura: Mild diffuse interstitial prominence. No focal consolidation. No pleural effusions or pneumothorax. Mediastinum: Mediastinal contours appear normal. Heart size is normal. Bones and chest wall: No suspicious bony lesions. Overlying soft tissues appear unremarkable. IMPRESSION: Mild diffuse interstitial prominence. No focal consolidation. Findings are nonspecific but may represent an infectious or inflammatory process. Early pulmonary edema may have a similar appearance. Dictated by: Deacon Vazquez M.D. on 02/16/2025 at 17:22 Approved by: Deacon Vazquez M.D. on 02/16/2025 at 17:23
[2025-02-16] MEDS: LIDOCAINE/PRILOCAINE 5 GM TOP (17:22)
--- NOTE | 2025-02-16 17:26 | PC.NURSE ---
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
[2025-02-16 18:26] LABS: Add Manual Diff / Slide Review NO; Basophils Absolute Auto 100 /uL (0-100); Basophils Percent Auto 1.3 % (0-2); Eosinophils Absolute Auto 200 /uL (0-450); Eosinophils Percent Auto 1.6 % (2-4); Hematocrit 35.7 % (36-46); INR 1.3 (0.9-1.3); Lymphocytes Absolute Auto 2100 /uL (1100-4500); Lymphocytes Percent Auto 20.1 % (25-40); Mean Corpuscular HGB Conc 33.8 % (30-36); Mean Corpuscular Hemoglobin 29.2 PG (26-34); Mean Corpuscular Volume 86.4 fL (80-100); Monocytes Absolute Auto 700 /uL (0-900); Monocytes Percent Auto 6.5 % (3-14); Neutrophils Absolute Auto 7400 /uL (1500-7000); Neutrophils Percent Auto 70.5 % (50-75); Platelet Count 271 X10^3/uL (150-400); Prothrombin Time 14.2 SECONDS (9.4-12.5); Red Blood Cell Count 4.13 X10^6/uL (4.0-5.2); White Blood Cell Count 10.5 X10^3/uL (4.5-11.0)
[2025-02-16 18:31] LABS: Alanine Aminotransferase 22 IU/L (<35); Albumin 4.3 g/dL (3.5-5.0); Albumin Globulin Ratio 1.4 (1.0-2.8); Alkaline Phosphatase 133 U/L (38-126); Aspartate Aminotransferase 21 IU/L (14-36); Bilirubin Total 1.1 mg/dL (0.2-1.3); Blood Urea Nitrogen 17 mg/dL (7-17); Calcium 8.9 mg/dL (8.4-10.2); Carbon Dioxide 25 mmol/L (22-32); Chloride 104 mmol/L (98-107); Creatine Kinase 51 U/L (30-135); Estimated Glomerular Filt Rate > 60 mL/min (>60); Glucose 116 mg/dL (70-99); HEMOLYSIS < 15 (0-50); Lactate (Lactic Acid) 1.5 mmol/L (0.7-2.1); Lipase 104 U/L (23-300); Magnesium 1.3 mg/dL (1.6-2.3); Potassium 3.6 mmol/L (3.4-5.1); Sodium 138 mmol/L (137-145); Total Protein 7.3 g/dL (6.3-8.2)
[2025-02-16 18:38] LABS: PTT Partial Thromboplastin Tim 97 SECONDS (25.1-36.5)
[2025-02-16 18:42] LABS: NT-proBNP (BNP-Adult 18+) 1570 pg/mL (<125); Troponin I 0.018 ng/mL (0.01-0.034)
--- NOTE | 2025-02-16 19:12 | ED_ITS ---
HPI - General Adult General Chief complaint: Shortness of Breath/Dyspnea Stated complaint: Primary care Ref, Lower back pain+arms, SOB Time Seen by Provider: 02/16/25 19:09 Source: patient, RN notes reviewed and old records reviewed Mode of arrival: Wheelchair Limitations: no limitations History of Present Illness HPI narrative: 59-year-old female history of VFib arrest status post PCI to RCA, CHF, prolonged hospitalization with tracheostomy tube and PEG tube placement 1024, history of aspiration pneumonia status post PICC treatment on Eliquis for reported factor 5 Leiden. Patient presents with complaint of abdominal pain, back pain and some right shoulder discomfort starting around the 03 of February denies any improvement in some worsening. Patient presents with complaint of abdominal pain which he states has been going on since her PEG tube fell out a couple of months ago back in August. She denies fevers. Patient states chronic shortness of breath, she was has a little bit of cough she was had some nausea and vomiting intermittently but describes this is chronic. States it often happens after eating. She has been constipated for the past 2 days has not had a bowel movement is taking MiraLax. She states she was having flatus. She also notes she was recently started on a diuretic and was having urinary frequency but also had what looks like some hematuria and dysuria with this as well. She states the abdominal pain does radiate a bit towards her back. She describes this is longstanding. She states she was taking her Eliquis daily, on Brilinta, taking her blood pressure and cholesterol medications on a diuretic. States she has not take anything for diabetes. Dr. Chan is her primary care physician. Patient is very clear that she would wish to be DNR/DNI if something suddenly changed. She would like to fill out a POLST form today. She was accompanied by a friend that she describes as being like her mother. Related Data Previous Rx's Medication Instructions Recorded polyethylene glycol 3350 17 17 g PO DAILY #119 grams 10/11/24 gram/dose oral powder folic acid 1 mg tablet 1 mg PO DAILY #30 tabs 10/12/24 ondansetron HCl 4 mg tablet 4 mg PO Q8H PRN nausea and 10/12/24 vomiting #30 tabs apixaban 5 mg tablet 5 mg PO BID #180 tabs 11/02/24 ticagrelor 90 mg tablet (Brilinta) 90 mg PO BID #180 tabs 11/04/24 atorvastatin 40 mg tablet 40 mg PO BEDTIME #90 tabs 12/02/24 metoprolol tartrate 25 mg tablet 25 mg PO BID #180 tabs 12/02/24 lisinopril 5 mg tablet 5 mg PO DAILY #60 tabs 12/30/24 furosemide 40 mg tablet (Lasix) 40 mg PO DAILY #3 tabs 02/01/25 spironolactone 25 mg tablet 12.5 mg (1/2 x 25 mg) PO DAILY #45 02/02/25 tabs nicotine 21 mg/24 hr daily 1 patch transdermal DAILY #28 ea 02/07/25 transdermal patch pantoprazole 40 mg tablet,delayed 40 mg PO DAILY #30 tabs 02/07/25 release quetiapine 25 mg tablet 75 mg (3 x 25 mg) PO TID #90 tabs 02/07/25 ciprofloxacin HCl 500 mg tablet 500 mg PO BID 10 days #20 tabs 02/16/25 Allergies Allergy/AdvReac Type Severity Reaction Status Date / Time Penicillins Allergy Unknown, Verified 02/16/25 14:40 childhood acetaminophen [From Vicodin] AdvReac Vomiting Verified 02/16/25 14:40 hydrocodone [From Vicodin] AdvReac Vomiting Verified 02/16/25 14:40 Review of Systems Review of Systems ROS Unobtainable: All systems reviewed & are unremarkable except as noted in HPI and below Patient History tobacco type: cigarettes alcohol intake frequency: 0-2 drinks per day Exam Narrative Exam Narrative: GENERAL: Alert and oriented x three, female in mild distress HEENT: Head normocephalic, atraumatic, EOMI, pupils reactive, face symmetric, moist mucous membranes NECK: Supple, full range of motion CARDIOVASCULAR: Regular rate and rhythm without murmurs, rubs or gallops. No edema bilateral lower extremities. RESPIRATORY: Breath sounds equal bilaterally, no wheezes rales or rhonchi. No tachypnea or accessory muscle ABDOMEN: Soft, nontender. Normoactive bowel sounds all 4 quadrants. No guarding or rebound, rigidity, no mass : No CVA tenderness EXTREMITIES: Normal range of motion, no clubbing or edema. Neurovascularly intact NEUROLOGICAL: Cranial nerves II through XII grossly intact. Moving all extremities SKIN: Warm, dry, no petechiae, no rashes or lesions. Initial Vital Signs Initial Vital Signs: Vital Signs Temperature 98 F 02/16/25 16:46 Pulse Rate 102 H 02/16/25 16:46 Respiratory Rate 16 02/16/25 16:46 Blood Pressure 132/59 L 02/16/25 16:46 Pulse Oximetry 98 02/16/25 16:46 Oxygen Delivery Method Room Air 02/16/25 16:46 Course Orders Ordered: ED Orders 02/16/25 19:29 CT abdomen pelvis w con Stat 02/16/25 20:25 Trop I [Troponin I] Stat 02/16/25 20:35 EKG-12 Lead Routine Discontinued Medications Aspirin (Aspirin 81 Mg Chew Tab) 324 mg PO NOW ONE Stop: 02/16/25 17:02 Last Admin: 02/16/25 18:33 Dose: Not Given Documented By: SARA Ciprofloxacin (Ciprofloxacin 250 Mg Tablet) 500 mg PO NOW ONE Stop: 02/16/25 21:07 Last Admin: 02/16/25 21:30 Dose: 500 mg Documented By: TONYA Heparin Sodium (Porcine) (Heparin Flush (Cl/Picc/Mid-Line) 50 Unit/5 Ml Syringe) 50 unit IV NOW ONE Stop: 02/16/25 22:41 Last Admin: 02/16/25 22:54 Dose: 50 unit Documented By: SARA Sodium Chloride (Normal Saline 0.9%) 500 mls @ 1,000 mls/hr IV BOLUS ONE Stop: 02/16/25 21:35 Last Infusion: 02/16/25 22:14 Dose: Infused Documented By: Admin: 02/16/25 21:33 Dose: 1,000 mls/hr Documented By: TONYA Lidocaine/Prilocaine (Lidocaine/Prilocaine 5 Gm) 5 gm TOP NOW ONE Stop: 02/16/25 17:12 Last Admin: 02/16/25 17:22 Dose: 5 gm Documented By: DINO Ondansetron HCl (Ondansetron 4 Mg/2 Ml Inj) 4 mg IV NOW ONE Stop: 02/16/25 19:30 Last Admin: 02/16/25 20:02 Dose: 4 mg Documented By: TONYA Oxycodone/Acetaminophen (Oxycodone/Acetaminophen 5/325 Tablet) 2 tab PO NOW ONE Stop: 02/16/25 19:30 Last Admin: 02/16/25 20:02 Dose: 2 tab Documented By: RLC Oxycodone/Acetaminophen (Oxycodone/Apap 5/325 Prepack) 1 bottle MISC DIRECTED ONE Stop: 02/16/25 22:51 Last Admin: 02/16/25 22:55 Dose: 1 bottle Documented By: SARA Vital Signs Vital signs: Vital Signs - 8 hr 02/16/25 21:00 02/16/25 21:30 Pulse Rate 75 79 Respiratory Rate 16 Blood Pressure 77/38 L 95/54 L Pulse Oximetry 99 99 Oxygen Delivery Method Room Air Medical Decision Making Lab Data 02/16/25 18:10 02/16/25 18:10 Labs: Lab Results 02/16/25 02/16/25 02/16/25 Range/Units 18:00 18:10 20:25 WBC 10.5 (4.5-11.0) X10^3/uL RBC 4.13 (4.0-5.2) X10^6/uL Hgb 12.0 (12.0-16.0) g/dL Hct 35.7 L (36-46) % MCV 86.4 (80-100) fL MCH 29.2 (26-34) PG MCHC 33.8 (30-36) % RDW 15.0 H (11.6-14.8) % Plt Count 271 (150-400) X10^3/uL Neut % (Auto) 70.5 (50-75) % Lymph % (Auto) 20.1 L (25-40) % Blount % (Auto) 6.5 (3-14) % Eos % (Auto) 1.6 L (2-4) % Baso % (Auto) 1.3 (0-2) % Neut # (Auto) 7400 H (4492-1877) /uL Lymph # (Auto) 2100 (9127-0396) /uL Blount # (Auto) 700 (0-900) /uL Eos # (Auto) 200 (0-450) /uL Baso # (Auto) 100 (0-100) /uL PT 14.2 H (9.4-12.5) SECONDS INR 1.3 (0.9-1.3) APTT 97 H* (25.1-36.5) SECONDS Sodium 138 (137-145) mmol/L Potassium 3.6 (3.4-5.1) mmol/L Chloride 104 (98-107) mmol/L Carbon Dioxide 25 (22-32) mmol/L BUN 17 (7-17) mg/dL Creatinine 0.74 (0.52-1.04) mg/dL Estimated GFR > 60 (>60) mL/min BUN/Creatinine Ratio 23.0 H (6-22) Glucose 116 H (70-99) mg/dL Lactate 1.5 (0.7-2.1) mmol/L Calcium 8.9 (8.4-10.2) mg/dL Magnesium 1.3 L (1.6-2.3) mg/dL Total Bilirubin 1.1 (0.2-1.3) mg/dL AST 21 (14-36) IU/L ALT 22 (<35) IU/L Alkaline Phosphatase 133 H (38-126) U/L Total Creatine Kinase 51 (30-135) U/L Troponin I 0.018 < 0.012 (0.01-0.034) ng/mL NT-Pro-B Natriuret Pep 1570 H (<125) pg/mL Total Protein 7.3 (6.3-8.2) g/dL Albumin 4.3 (3.5-5.0) g/dL Globulin 3.0 (1.7-4.1) g/dL Albumin/Globulin Ratio 1.4 (1.0-2.8) Lipase 104 (23-300) U/L Urine Color Yellow Urine Appearance Cloudy Urine pH 7.0 (4.5-8.0) Ur Specific [place] 1.010 (1.000-1.035) Urine Protein Trace H (Negative) Urine Glucose (UA) Negative (Negative) g/dL Urine Ketones Negative (NEGATIVE) Urine Occult Blood 1+ H (Negative) Urine Nitrate Negative (Negative) Urine Bilirubin Negative (NEGATIVE) Urine Urobilinogen 0.2 (0.2) E.U./dL Ur Leukocyte Esterase 1+ H (NEGATIVE) Urine RBC 1-5/hpf (0-5/HPF) Urine WBC >100/hpf H (0-5/HPF) Ur Squamous Epith Cells 1-5 /hpf (0-5/HPF) Urine Bacteria Many (>30) H (None) Ur Culture Indicated? Specimen cultured Vol Urine Centrifuged 10ml (spun) ECG Data Attestation: I personally reviewed and interpreted this ECG as follows: Prior ECG tracings: available for review Interpretation: Sinus tachycardia rate of 105 MN 124 QRS 84 QTC 441, no acute ST elevation depression noted. Nonspecific change from prior on 09/04/2024. Sinus rhythm rate 86 MN 136 QRS 84 QTC 449, no acute ST elevation or depression noted. MDM Narrative Medical decision making narrative: EKG shows sinus tachycardia, no acute ST changes. Repeat EKG shows no acute change Labs show white count of 10 hemoglobin of 12, platelets of 271. INR is 1.3 PTT is 97. Patient is reportedly on Eliquis. Electrolytes are appropriate BUN creatinine normal glucose is 116 magnesium is 1.3 LFTs are otherwise normal except for alk-phos of 133 troponin 0.018 with a BNP of 1570. Patient has prior were indeterminate in August of 2024 with a BNP at that time 5410. Repeat troponin is less than 0 0.012 UA shows trace protein 1+ blood, 1+ leuks, greater than 100 WBCs, 1-5 squamous many bacteria was sent for culture. Chest x-ray shows mild diffuse interstitial prominence no focal consolidation findings nonspecific but could represent infectious or inflammatory process early pulmonary edema could have similar appearance. CT abdomen pelvis shows mild right hydronephrosis stranding proximal right ureter could represent upper UTI, no kidney stones mild stranding near the urinary bladder cystitis possibility no bowel obstruction, diverticulosis. Patient had aspirin 324 mg had Zofran, she requested some pain medication states she takes Percocet in the past so was given this. Patient was started on dose of antibiotic, I blood pressure did decrease was given fluids here in the department. Patient appears to have a developing pyelonephritis. Heart rate slightly increased, her blood pressure has dropped here in the department. Patient without telling the nursing staff took all of her evening medications including her blood pressure medications here in the department. She was up ambulating and states she was feeling much improved she was like to return home. We discussed staying overnight as her blood pressure did decrease but she feels comfortable discharging and feels improved at this time. Discussed return precautions. Patient is tolerating orals without any issue. Patient is quite adamant she does not want CPR or intubation she had a traumatic experience with her prior prolonged hospitalization, trach and PEG tube. She did want to fill out a POLST form as DNR/DNI, limited interventions. She was still comfortable with medical treatments, hospitalization. Notes that she would not want a PEG tube or artificial nutrition if necessary. Friend was at bedside for this and she was given the original with a copy kept with her chart. Discharge Plan Departure Patient Disposition: Home Clinical Impression: Pyelonephritis Instructions: DI for Kidney Infection Activity Restrictions/Additional Instructions: You appear to have a pyelonephritis or kidney infection on your workup today, these can sometimes make people very sick if you are feeling worse you need to return to the emergency department. Take oral antibiotics until completed. Your prescription was sent to [facility] in [place] You can take the oral pain medication prescribed 1 tablet every 6 hours as needed. This medication can make you sleepy do not drive, perform hazardous activities or make any major decisions while taking it. This medication will make you constipated please take a stool softener once to twice daily until stools are soft and regular. Please return for fevers, new or worsening abdominal back or flank pain, vomiting, lightheadedness or passing out, new chest pain, new swelling of your extremities or if you are feeling significantly worse or other new or concerning changes. Prescriptions: New ciprofloxacin HCl 500 mg tablet 500 mg PO BID 10 Days Qty: 20 0RF No Action polyethylene glycol 3350 17 gram/dose powder 17 g PO DAILY Qty: 119 0RF ondansetron HCl 4 mg tablet 4 mg PO Q8H PRN (Reason: nausea and vomiting) Qty: 30 6RF folic acid 1 mg tablet 1 mg PO DAILY Qty: 30 6RF apixaban 5 mg tablet 5 mg PO BID Qty: 180 3RF Brilinta 90 mg tablet 90 mg PO BID Qty: 180 3RF atorvastatin 40 mg tablet 40 mg PO BEDTIME Qty: 90 3RF metoprolol tartrate 25 mg tablet 25 mg PO BID Qty: 180 3RF lisinopril 5 mg tablet 5 mg PO DAILY Qty: 60 6RF spironolactone 25 mg tablet 12.5 mg PO DAILY Qty: 45 1RF nicotine 21 mg/24 hr patch 24 hour 1 patch transdermal DAILY Qty: 28 0RF pantoprazole 40 mg tablet,delayed release (DR/EC) 40 mg PO DAILY Qty: 30 6RF quetiapine 25 mg tablet 75 mg PO TID Qty: 90 2RF furosemide [Lasix] 40 mg tablet 40 mg PO DAILY Qty: 3 0RF Referrals: Cherrie Chan DO [Primary Care Provider] - Stand Alone Forms: Patient Portal/API/Survey
--- NOTE | 2025-02-16 19:29 | DI.CT.S_ITS ---
PROCEDURE: CT ABDOMEN PELVIS W CON INDICATIONS: abd pain, acute on chronic mid abd, hx peg tube TECHNIQUE: After the administration of intravenous contrast, axial sections acquired from the lung bases to the pubic symphysis. Coronal and sagittal reformats were performed. For radiation dose reduction, the following was used: automated exposure control, adjustment of mA and/or kV according to patient size. COMPARISON: [facility], CT, CT ABDOMEN PELVIS W CON, 10/23/2024, 20:31. FINDINGS: Image quality: Diagnostic. Lower Chest: No significant findings. ABDOMEN: Liver: No solid mass. Gallbladder: No radiopaque gallstones or wall thickening. Biliary ducts: No biliary dilation. Pancreas: No ductal dilation. Spleen: Size is within normal limits. Adrenal Glands: No adrenal nodules. Kidneys and Ureters: Mild right hydronephrosis. Mild stranding about the proximal right ureter. No significant hydroureter. No striated nephrogram. No obstructing kidney stones seen. No solid renal mass. Stomach and Bowel: Normal colonic caliber, without significant wall thickening. Diverticulosis. Normal appendix. Peritoneum: No abnormal intraperitoneal fluid. No free air. Ventral Wall: No significant ventral hernia. Abdominal Nodes: No retroperitoneal or mesenteric adenopathy by size criteria. Vessels: Aorta and inferior vena cava are normal in size. Moderate calcified atherosclerotic plaque. PELVIS: Pelvic Organs: Anteverted uterus. Bladder: Mild stranding near the urinary bladder. No stone. Pelvic Nodes: No enlarged lymph nodes. Miscellaneous: No inguinal hernias are seen. Bones: No aggressive osseous abnormality. IMPRESSION: 1. Mild right hydronephrosis. Stranding about the proximal right ureter. This could represent upper urinary tract infection. 2. No kidney stones identified. 3. Mild stranding near the urinary bladder. Cystitis is a possibility. 4. No bowel obstruction. Diverticulosis. Dictated by: Michael Greenberg M.D. on 02/16/2025 at 20:29 Approved by: Michael Greenberg M.D. on 02/16/2025 at 20:38
[2025-02-16] MEDS: ONDANSETRON 4 MG/2 ML INJ IV (20:02)
[2025-02-16] MEDS: OXYCODONE/ACETAMINOPHEN 5/325 TABLET 2 TAB PO (20:02)
[2025-02-16 20:31] LABS: Bilirubin Urine UA NEGATIVE (NEGATIVE); Color Urine UA YELLOW; Glucose Urine UA NEGATIVE (Negative); Ketones Urine UA NEGATIVE (NEGATIVE); Leukocyte Esterase Urine UA 1+ (NEGATIVE); Nitrite Urine UA NEGATIVE (Negative); Occult Blood Urine UA 1+ (Negative); Protein Urine UA TRACE (Negative); Urobilinogen Urine UA 0.2 E.U./dL (0.2)
--- NOTE | 2025-02-16 20:35 | EKG_ITS ---
[address] [address] Test Date: 2025-02-16 Pat Name: Mya Jj Department: Room: Gender: Female Roll Inspector: KEI : 1965 Requested By: Order Number: [id number] Reading MD: Figueroa Troy Measurements Intervals Scott Rate: 86 P: 59 SC: 136 QRS: 8 QRSD: 84 T: 17 QT: 376 QTc: 449 Interpretive Statements Normal sinus rhythm Inferior infarct , age undetermined Electronically Signed On 02-17-2025 19:08:14 PDT by Figueroa Troy
[2025-02-16 20:44] LABS: Appearance Urine UA CLOUDY; Bacteria Urine Many (>30); Culture Indicated Urine Specimen Cultured; RBC Urine 1-5/HPF (0-5/HPF); Squamous Epithelial Cell Urine 1-5 /HPF (0-5/HPF); Urine Volume 10mL (spun); WBC Urine >100/HPF (0-5/HPF)
[2025-02-16 21:00] VITALS: BP 77/38; PULSE 75; O2SAT 99
[2025-02-16 21:05] LABS: Troponin I < 0.012 ng/mL (0.01-0.034)
--- NOTE | 2025-02-16 21:15 | PC.NURSE ---
Addendum entered by Aliyah Jaeger R.N. 02/16/25 21:19: Event took place w20:30 medical center director. Original Note: Pt given a cup of water to take PO pain meds. After medical center director, this RN was leaving the room when pt's support person hands her a pill box at her request to take her evening meds. This RN turned around and stepped back into pt's room to inquire what meds was she taking and to hold off so the provider could be consulted. Pt states it's too late, I already took them and offers it's just her usual evening meds. Pt unable to tell this RN what she takes or dosages. Primary RN notified.
[2025-02-16 21:30] VITALS: BP 95/54; PULSE 79; RESP 16; O2SAT 99
[2025-02-16] MEDS: CIPROFLOXACIN 250 MG TABLET 500 MG PO (21:30)
[2025-02-16] MEDS: SODIUM CHLORIDE 0.9% 500 ML 1000 ML IV (21:33)
[2025-02-16] MEDS: OXYCODONE/APAP 5/325 PREPACK 1 BOTTLE MISC (22:55)
--- NOTE | 2025-02-16 23:15 | PC.NURSE ---
This RN noticed the POLST form in chart has two different names written on it, talked with registration to delete if from this chart. Unable to call patient at this time for her to come back to refill out form because hospital phones are giving busy signals
== END 2025-02-16 21:55 | disposition home or self-care (01) ==
PROVIDERS: Emergency Medicine; Emergency Provider Emergency Medicine; Family Provider Physician Assistant; PCP Family Medicine
DX: N12 Tubulo-interstitial nephritis, not specified as acute or chronic (principal); R07.9 Chest pain, unspecified; R00.0 Tachycardia, unspecified; Z79.01 Long term (current) use of anticoagulants; M54.50 Low back pain, unspecified; M25.512 Pain in left shoulder; R31.9 Hematuria, unspecified; R06.02 Shortness of breath
CPT/HCPCS: 36415; 71045; 74177; 80053; 81001; 82550; 83605; 83690; 83735; 83880; 84484; 85025; 85610; 85730; 87077; 87086; 87186; 93005; 96361; 96374; 99281; 99284; J1642; J2405; Q9967

== ENCOUNTER → 2025-04-12 09:23 | Outpatient (CLI) | payer OTHER, SELFPAY ==
--- NOTE | 2025-04-12 09:24 | DI.ECHO.S_ITS ---
[facility] : : [address] : : [place] : : [id number] : : Phone: [phone] Echocardiogram Report + + :Name: BRADLEY LORD Study Date: 04/12/2025 Height: 62 in : :Hospital ReadingLocation: Weight: 220 lb : : Gender: Female BSA: 2.0 m2 : :: 1965 Age: 59 yrs BP: 103/62 mmHg: :Reason For Study: ATHEROSCLEROTIC HEART DISEASE : :Ordering Physician: GAGANDEEP, : :ASHLEY Performed By: Brittany Denson : :Referring: ASHLEY BASS : + + Interpretation Summary 1) Normal left ventricular thickness and size with low normal systolic function (EF 50-55%). 2) Basal to mid inferolateral wall is hypokinetic. Basal inferior wall is severely hypokinetic. 3) Normal right ventricular size and function. 4) No significant valvular abnormalities. 5) Compared to the Echo done 10/24/2024, no significant change when compared visually. Procedure: A two-dimensional transthoracic echocardiogram with color flow and Doppler was performed. The study quality was technically adequate. Comparison is made with the echocardiogram of 10/24/2024. Patient was very tender to probe pressure during exam due to scar tissue. The patient was in sinus rhythm with heart rates between 60-72 bpm during the exam. Left Ventricle: The left ventricle is normal in size. There is normal left ventricular wall thickness. The ejection fraction is estimated to be 50-55%. Basal to mid inferolateral wall is hypokinetic. Basal inferior wall is severely hypokinetic. Grade I diastolic dysfunction with normal left atrial pressure. Right Ventricle: The right ventricle is normal in size and function. Atria: The left atrial size is normal. Right atrial size is normal. Mitral Valve: The mitral valve leaflets appear to open well. There is trace mitral regurgitation. Aortic Valve: The aortic valve is trileaflet. The aortic valve opens well. There is no aortic valve stenosis. No aortic regurgitation is present. Tricuspid Valve: The tricuspid valve leaflets are thin and pliable. There is trace tricuspid regurgitation. The right ventricular systolic pressure is estimated to be at least 19 mmHg based on an estimated right atrial pressure of 3 mm Hg. Pulmonic Valve: The pulmonic valve leaflets are thin and pliable; valve motion is normal. There is a trace or physiologic amount of pulmonic regurgitation. Great Vessels: The aortic root is normal size. The dimensions of the ascending aorta are normal. The IVC is of normal diameter and collapses greater than 50% with a sniff. This suggests a low right atrial pressure of 3 mm Hg. Pericardium/ Pleura There is no pericardial effusion. There is an anterior echo-free space consistent with a fat pad. There is no pleural effusion. MMode/2D Measurements & Calculations LVIDd: 5.6 cm LVOT diam: 2.0 cm LVIDs: 4.7 cm Ao root diam: 3.0 cm FS: 16.4 % asc Aorta Diam: 3.2 cm IVSd: 0.70 cm Ao Arch Diam (Prox Trans): 2.9 cm LVPWd: 0.80 cm LV velasquez. diameter/BSA (cm/m^2): 2.8 LV sys. diameter/BSA (cm/m^2): 2.4 LA A2 area: 16.3 cm2 RA long axis: 4.1 cm LA A4 area: 16.0 cm2 RA area: 11.2 cm2 LA length (vol): 4.3 cm RA vol: 26.2 ml LA vol: 51.4 ml RA : 13.2 ml/m2 LA vol index: 25.8 ml/m2 IVC diam: 1.3 cm RVD1 (basal): 3.4 cm RVD2 (mid): 2.7 cm TAPSE: 1.7 cm Doppler Measurements & Calculations Ao V2 max: 143.3 cm/sec LVOT Max [place]: 103.7 cm/sec Ao V2 mean: 103.3 cm/sec LV V1 max P.3 mmHg Ao max P.2 mmHg LV V1 VTI: 21.9 cm Ao mean P.7 mmHg JOANN(I,D): 2.2 cm2 Ao V2 VTI: 32.7 cm JOANN(V,D): 2.3 cm2 sev ratio: 0.67 JOANN indexed to BSA (cm^2/m^2): 1.1 MV E max [place]: 75.0 cm/sec TR max gu[place]: 198.8 cm/sec MV A max gu[place]: 86.0 cm/sec TR max P.8 mmHg MV E/A: 0.87 PA V2 max: 85.9 cm/sec Med Peak E' [place]: 5.9 cm/sec PA V2 mean: 61.1 cm/sec E/E' med: 12.6 PA mean P.6 mmHg Lat Peak E' [place]: 9.4 cm/sec PA pr(Accel): 41.3 mmHg E/E' lat: 7.9 E/e' average: 10.3 MV dec time: 0.20 sec SV(LVOT): 70.5 ml Reading Physician:11:16 AM
== END ==
PROVIDERS: Family Provider Physician Assistant; PCP Family Medicine; Referring Provider Internal Medicine Cardiovascular Disease; Visit Provider Internal Medicine Cardiovascular Disease
DX: I25.10 Atherosclerotic heart disease of native coronary artery without angina pectoris (principal); I25.2 Old myocardial infarction; I50.22 Chronic systolic (congestive) heart failure
CPT/HCPCS: 93306

== ENCOUNTER 2025-09-17 15:35 | Emergency (ER) | payer OTHER, SELFPAY ==
[2025-09-17] VITALS (24 sets, daily range): BP systolic 105–150; BP diastolic 50–67; PULSE 77–130; RESP 16–39; TEMP 31–35.8; O2SAT 97–100; BMI 46.3
--- NOTE | 2025-09-17 15:35 | ED.SOB ---
HPI - SOB/Dyspnea General Chief Complaint: Shortness of Breath/Dyspnea Stated Complaint: Respiratory Distress Time Seen by Provider: 09/17/25 15:35 History of Present Illness HPI Narrative: 60-year-old history of CAD with stent, history of tracheostomy, brought in via EMS in respiratory distress on nrb. Patient states she is allergic to steroids make her mean and nebulized treatments closes her airway. Patient denies nausea, vomiting, diarrhea, fever, chills, body aches, cough, sore throat, active chest pain, back pain, abdominal pain, diaphoresis, leg pain or swelling. Other than what is stated 14 point review of systems negative Related Data Previous Rx's ?Medication ?Instructions ?Recorded polyethylene glycol 3350 17 17 g PO DAILY #119 grams 10/11/24 gram/dose oral powder apixaban 5 mg tablet 5 mg PO BID #180 tabs 11/02/24 spironolactone 25 mg tablet 12.5 mg (1/2 x 25 mg) PO DAILY #45 02/02/25 tabs pantoprazole 40 mg tablet,delayed 40 mg PO DAILY #30 tabs 02/07/25 release atorvastatin 40 mg tablet 40 mg PO BEDTIME #90 tabs 03/10/25 lisinopril 5 mg tablet 5 mg PO DAILY #90 tabs 03/10/25 metoprolol tartrate 25 mg tablet 25 mg PO BID #180 tabs 03/10/25 budesonide-formoterol HFA 160 2 puff inhalation BID #10.2 grams 04/06/25 mcg-4.5 mcg/actuation aerosol inhaler (Symbicort) spacer #1 ea 04/06/25 nicotine 21 mg/24 hr daily 1 patch transdermal DAILY #28 ea 08/23/25 transdermal patch ticagrelor 90 mg tablet (Brilinta) 90 mg PO BID #180 tabs 09/04/25 Disabled Parking Permit 1 ea Not Applicable DAILY #1 ea 09/07/25 quetiapine 25 mg tablet 75 mg (3 x 25 mg) PO TID #270 tabs 09/11/25 Allergies Allergy/AdvReac Type Severity Reaction Status Date / Time Penicillins Allergy Unknown, Verified 09/17/25 15:57 childhood acetaminophen (From Vicodin) AdvReac Vomiting Verified 09/17/25 15:57 hydrocodone (From Vicodin) AdvReac Vomiting Verified 09/17/25 15:57 other Allergy Severe Anaphylaxis Uncoded 09/17/25 15:57 Review of Systems Review of Systems ROS Unobtainable: All systems reviewed & are unremarkable except as noted in HPI and below Patient History Medical History (Updated 09/17/25 @ 21:56 by Stalin Ca MD) 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 Well-developed patient, in moderate distress. HEAD: Atraumatic. Normocephalic. EYES: Pupils equal round and reactive. Extraocular motions intact. No scleral icterus. No injection or drainage. ENT: Nose without bleeding, purulent drainage. Throat without erythema, tonsillar hypertrophy or exudate. Airway patent. NECK: Trachea midline. Non tender CARDIOVASCULAR: Regular rate and rhythm without murmurs, gallops, or rubs. RESPIRATORY: Diffuse wheeze b/l with faint crackles at bases. GASTROINTESTINAL: Abdomen soft, non-tender, nondistended. EXTREMITIES: No edema or joint tenderness. BACK: Nontender without deformity or crepitance. No flank tenderness. NEURO: AOx3. SKIN: No rash or erythema of visible areas Initial Vital Signs Initial Vital Signs: Vital Signs Temperature 96.5 F L 09/17/25 15:38 Pulse Rate 111 H 09/17/25 15:38 Respiratory Rate 24 09/17/25 15:38 Blood Pressure 117/58 L 09/17/25 15:38 Pulse Oximetry 98 09/17/25 15:38 Oxygen Delivery Method Non -Rebreather 09/17/25 15:38 Course Orders Ordered: Discontinued Medications Heparin Sodium (Porcine) (Heparin 500 Unit/5 Ml Port Flush) 500 unit IV PRN PRN PRN Reason: Flush Last Admin: 09/17/25 22:08 Dose: 500 unit Documented By: SIVAN Lorazepam (Lorazepam 2 Mg/Ml Inj) 2 mg IV NOW ONE Stop: 09/17/25 15:42 Last Admin: 09/17/25 15:53 Dose: 2 mg Documented By: JHoracio Lorazepam (Lorazepam 2 Mg/Ml Inj) 1 mg IV NOW ONE Stop: 09/17/25 20:16 Last Admin: 09/17/25 20:22 Dose: 1 mg Documented By: AGUSTIN Methylprednisolone (Methylprednisolone Succ 125 Mg/2 Ml Vial) 125 mg IV NOW ONE Stop: 09/17/25 17:21 Last Admin: 09/17/25 17:45 Dose: 125 mg Documented By: AGUSTIN Vital Signs Vital signs: Vital Signs - 8 hr 09/17/25 15:38 09/17/25 15:43 09/17/25 15:43 Temperature 96.5 F L Pulse Rate 111 H 109 H Respiratory Rate 24 28 H Blood Pressure 117/58 L 117/58 L Pulse Oximetry 98 98 Oxygen Delivery Method Non -Rebreather BiPAP Oxygen Flow Rate 38 Fraction of Inspired Oxygen 09/17/25 15:47 09/17/25 15:47 09/17/25 16:00 Temperature Pulse Rate 109 H 100 H Respiratory Rate Blood Pressure 109/67 Pulse Oximetry 97 97 Oxygen Delivery Method Oxygen Flow Rate Fraction of Inspired Oxygen 09/17/25 16:01 09/17/25 16:01 09/17/25 16:15 Temperature Pulse Rate 100 H Respiratory Rate Blood Pressure 126/60 117/58 L Pulse Oximetry 97 Oxygen Delivery Method Oxygen Flow Rate Fraction of Inspired Oxygen 38 09/17/25 16:30 09/17/25 17:00 09/17/25 17:02 Temperature Pulse Rate 99 H 89 90 Respiratory Rate 20 Blood Pressure Pulse Oximetry 98 97 98 Oxygen Delivery Method BiPAP Oxygen Flow Rate 38 Fraction of Inspired Oxygen 09/17/25 17:02 09/17/25 17:15 09/17/25 17:15 Temperature Pulse Rate 91 H Respiratory Rate Blood Pressure 105/57 L 122/57 L Pulse Oximetry 100 Oxygen Delivery Method Oxygen Flow Rate Fraction of Inspired Oxygen MDM - SOB/Dyspnea Lab Data 09/17/25 17:15 09/17/25 17:15 Labs: Lab Results 09/17/25 09/17/25 09/17/25 Range/Units 15:40 17:15 17:20 WBC 9.2 (4.5-11.0) X10^3/uL RBC 3.97 L (4.0-5.2) X10^6/uL Hgb 11.9 L (12.0-16.0) g/dL Hct 34.9 L (36-46) % MCV 87.9 (80-100) fL MCH 29.9 (26-34) PG MCHC 34.0 (30-36) % RDW 14.2 (11.6-14.8) % Plt Count 232 (150-400) X10^3/uL Neut % (Auto) 78.1 H (50-75) % Lymph % (Auto) 11.7 L (25-40) % [place] % (Auto) 6.9 (3-14) % Eos % (Auto) 2.8 (2-4) % Baso % (Auto) 0.5 (0-2) % Neut # (Auto) 7200 H (9625-9791) /uL Lymph # (Auto) 1100 (5196-1748) /uL [place] # (Auto) 600 (0-900) /uL Eos # (Auto) 300 (0-450) /uL Baso # (Auto) 0 (0-100) /uL VBG pH 7.38 (7.33-7.43) VBG pCO2 39.0 L (45-50) mmHg VBG pO2 89 H (35-45) mmHg VBG HCO3 23 L (24-28) mmol/L VBG Total CO2 22 L (24-29) mmol/L VBG O2 Saturation 97 H (70-75) % VBG Base Excess -2.1 L (0-4) mmol/L FiO2 % 38.0 % % Sodium 137 (137-145) mmol/L Potassium 4.4 (3.4-5.1) mmol/L Chloride 109 H (98-107) mmol/L Carbon Dioxide 20 L (22-32) mmol/L BUN 20 H (7-17) mg/dL Creatinine 0.87 (0.52-1.04) mg/dL Estimated GFR > 60 (>60) mL/min BUN/Creatinine Ratio 23.0 H (6-22) Glucose 106 H (70-99) mg/dL Lactate 1.7 (0.7-2.1) mmol/L Calcium 8.9 (8.4-10.2) mg/dL Magnesium 1.8 (1.6-2.3) mg/dL Total Bilirubin 0.8 (0.2-1.3) mg/dL AST 24 (14-36) IU/L ALT 28 (<35) IU/L Alkaline Phosphatase 103 (38-126) U/L Troponin I 0.019 (0.01-0.034) ng/mL NT-Pro-B Natriuret Pep 321 H (<125) pg/mL Total Protein 7.1 (6.3-8.2) g/dL Albumin 4.2 (3.5-5.0) g/dL Globulin 2.9 (1.7-4.1) g/dL Albumin/Globulin Ratio 1.4 (1.0-2.8) Lipase 115 (23-300) U/L Chlamy pneumoniae PCR Not detected (Not Detect) Adenovirus (PCR) Not detected (Not Detect) B. pertussis DNA (PCR) Not detected (Not Detect) B.parapertussis DNA PCR Not detected (Not Detecte) Coronavirus OC43 (PCR) Not detected (Not Detect) Coronavirus HKU1 (PCR) Not detected (Not Detect) Coronavirus 229E (PCR) Not detected (Not Detect) SARS-CoV-2 (PCR) Not detected (Not Detecte) Coronavirus NL63 (PCR) Not detected (Not Detect) Human Metapneumovir PCR Not detected (Not Detect) Influenza Type A (PCR) Not detected (Not Detect) Influenza Type B (PCR) Not detected (Not Detect) M. pneumoniae (PCR) Not detected (Not Detect) Parainfluenza 1 (PCR) Not detected (Not Detect) Parainfluenza 2 (PCR) Not detected (Not Detect) Parainfluenza 3 (PCR) Not detected (Not Detect) Parainfluenza 4 (PCR) Not detected (Not Detect) RSV (PCR) Not detected (Not Detect) Entero/Rhino (PCR) Not detected (Not Detect) ECG Data Interpretation: Sinus Tach with occ pvc HR 107 SD 138 QRS [address]-t wave change Unchanged from 02/16/25 MDM Narrative Medical decision making narrative: All labwork, vital signs, molecular geneticist note, med list, previous ER visits and all imaging studies reviewed. WBC 9.2 hg 11.9 plt 232 Na 137 K 4.4 CL 109 C02 20 Bun 20 Cr 0.87 glu 106 lactate 1.7 mag 1.8. Tn 0.019 BNP 321. Respiratory panel negative. Cxr low lung volume with mild interstitial prominence. Mild pulm edema suspected. Pt on bipap, given solumedrol 125mg IVx1 and ativan. Differential dx PE, copd, chf, stemi, nstemi. Pt s/o to at shift change pending final disposition Discharge Plan Departure Patient Disposition: Home Clinical Impression: Shortness of breath CHF (congestive heart failure) Qualifiers: Heart failure type: unspecified Heart failure chronicity: chronic Qualified Code(s): I50.9 - Heart failure, unspecified Activity Restrictions/Additional Instructions: Follow up cardiology as soon as possible. Continue with same medications being prescribed. Get a repeat CT of the chest in 1 year due to some small pulmonary nodules. Follow up for any worsening shortness of breath. Strongly encouraged to stop smoking. Prescriptions: No Action polyethylene glycol 3350 17 gram/dose powder 17 g PO DAILY Qty: 119 0RF apixaban 5 mg tablet 5 mg PO BID Qty: 180 3RF spironolactone 25 mg tablet 12.5 mg PO DAILY Qty: 45 1RF pantoprazole 40 mg tablet,delayed release (DR/EC) 40 mg PO DAILY Qty: 30 6RF lisinopril 5 mg tablet 5 mg PO DAILY Qty: 90 1RF atorvastatin 40 mg tablet 40 mg PO BEDTIME Qty: 90 1RF metoprolol tartrate 25 mg tablet 25 mg PO BID Qty: 180 1RF nicotine 21 mg/24 hr patch 24 hour 1 patch transdermal DAILY Qty: 28 3RF ticagrelor [Brilinta] 90 mg tablet 90 mg PO BID Qty: 180 0RF Disabled Parking Permit 1 ea Not Applicable DAILY Qty: 1 0RF quetiapine 25 mg tablet 75 mg PO TID Qty: 270 0RF budesonide-formoterol [Symbicort] 160-4.5 mcg/actuation HFA aerosol inhaler 2 puff inhalation BID Qty: 10.2 4RF (DME) spacer See Rx Instructions .ROUTE .MEDSUPPLY Qty: 1 0RF Rx Instructions: As directed, use with inhaler. Referrals: Cherrie Chan DO [Primary Care Provider, Family Practice] Stand Alone Forms: Patient Portal/API
--- NOTE | 2025-09-17 15:41 | DI.RAD.S_ITS ---
PROCEDURE: XR CHEST 1V INDICATIONS: Short of breath TECHNIQUE: One view of the chest was acquired. COMPARISON: [facility], CR, XR CHEST 1V, 02/16/2025, 16:59. [facility], CR, XR CHEST 2V, 02/01/2025, 14:07. FINDINGS: Surgical changes and devices: A stable right-sided chest port is seen. Left axillary clips are seen. Lungs and pleura: An incomplete inspiratory result is noted, causing a crowded appearance to the lung markings. No focal infiltrates are seen. Mild generalized interstitial prominence can be seen. No pneumothorax or significant pleural effusions are seen. Mediastinum: Mediastinal contours appear normal. Heart size is at the upper limits of normal. Bones and chest wall: No suspicious bony lesions. Age-appropriate bony degenerative changes are seen. Overlying soft tissues appear unremarkable. IMPRESSION: Low lung volumes with mild interstitial prominence. Mild pulmonary edema is suspected. Postoperative and degenerative changes are seen. Dictated by: Aleks Case M.D. on 09/17/2025 at 15:45 Approved by: Aleks Case M.D. on 09/17/2025 at 15:46
--- NOTE | 2025-09-17 15:41 | EKG_ITS ---
[facility] [id number] [place] [address] Test Date: 2025-09-17 Pat Name: Mya Jj Department: Room: Gender: Female Machine Presser: : 1965 Requested By: Order Number: [id number] Reading MD: Jesus Wang MD Measurements Intervals [place] Rate: 107 P: 54 MT: 138 QRS: 7 QRSD: 92 T: 33 QT: 348 QTc: 464 Interpretive Statements Sinus tachycardia with occasional premature ventricular complexes Inferior infarct , age undetermined Electronically Signed On 09-19-2025 7:39:34 PST by Jesus Wang MD
[2025-09-17 16:57] LABS: Coronavirus NL 63 Not Detected (Not Detect); SARS- CoV-2 Not Detected (Not Detecte)
[2025-09-17 17:24] LABS: Base Excess VBG -2.1 mmol/L (0-4); HCO3 VBG 23 mmol/L (24-28); Oxygen Saturation VBG 97 % (70-75); PCO2 VBG 39.0 mmHg (45-50); PO2 VBG 89 mmHg (35-45); Total CO2 VBG 22 mmol/L (24-29); pH VBG 7.38 (7.33-7.43)
[2025-09-17 17:28] LABS: Add Manual Diff / Slide Review NO; Hematocrit 34.9 % (36-46); Hemoglobin 11.9 g/dL (12.0-16.0); Lymphocytes Absolute Auto 1100 /uL (1100-4500); Mean Corpuscular HGB Conc 34.0 % (30-36); Mean Corpuscular Hemoglobin 29.9 PG (26-34); Mean Corpuscular Volume 87.9 fL (80-100); Platelet Count 232 X10^3/uL (150-400)
--- NOTE | 2025-09-17 17:30 | PC.NURSE ---
Pt given ice water and helped reposition in bed. Pt is breathing even and unlabored on Bipap. Pt reports feeling better. Port was accessed but unable to draw enough blood for labs. Flushes easily.
[2025-09-17 17:44] LABS: Alanine Aminotransferase 28 IU/L (<35); Albumin 4.2 g/dL (3.5-5.0); Albumin Globulin Ratio 1.4 (1.0-2.8); Alkaline Phosphatase 103 U/L (38-126); Blood Urea Nitrogen 20 mg/dL (7-17); Calcium 8.9 mg/dL (8.4-10.2); Carbon Dioxide 20 mmol/L (22-32); Chloride 109 mmol/L (98-107); Estimated Glomerular Filt Rate > 60 mL/min (>60); Globulin 2.9 g/dL (1.7-4.1); Glucose 106 mg/dL (70-99); HEMOLYSIS 18 (0-50); Lactate (Lactic Acid) 1.7 mmol/L (0.7-2.1); Lipase 115 U/L (23-300); Magnesium 1.8 mg/dL (1.6-2.3); Potassium 4.4 mmol/L (3.4-5.1); Sodium 137 mmol/L (137-145); Total Protein 7.1 g/dL (6.3-8.2)
[2025-09-17] MEDS: methylPREDNISolone succ 125 MG/2 ML VIAL IV (17:45)
[2025-09-17 17:56] LABS: NT-proBNP (BNP-Adult 18+) 321 pg/mL (<125); Troponin I 0.019 ng/mL (0.01-0.034)
--- NOTE | 2025-09-17 18:43 | PC.NURSE ---
No changes from initial assessment. Pt remains on BIPAP.
--- NOTE | 2025-09-17 18:47 | DI.CT.S_ITS ---
PROCEDURE: CT ANGIO CHEST PE PROTOCOL INDICATIONS: sob TECHNIQUE: After the administration of intravenous contrast, 2 mm thick sections acquired from the pulmonary apices to the posterior costophrenic angles. 3-dimensional maximum intensity projection (MIP) coronal and sagittal reformats were then acquired through the thorax. For radiation dose reduction, the following was used: automated exposure control, adjustment of mA and/or kV according to patient size. COMPARISON: [facility], CR, XR CHEST 1V, 09/17/2025, 16:14. [facility], CT, CT ANGIO CHEST PE, 06/20/2024, 0:42. FINDINGS: Image quality: Mild motion artifact Lungs and pleura: Mild diffuse septal thickening. Mild basal atelectasis. No pleural effusions. Mild bibasilar pleural thickening. No airspace consolidations. Small nodules are seen under 6 mm, for example in the right subpleural region measuring 8/81. Mediastinum, heart, and esophagus: No acute pulmonary embolism. Coronary calcifications. Heart size is at the upper limit of normal. No lymphadenopathy by size criteria Chest wall and thyroid: Left axillary clips. Thyroid is only partially seen, without gross abnormality. Chest wall venous collaterals are present. Upper abdomen: No gross abnormality on these arterial phase images Bones: There are degenerative osseous findings. No aggressive appearing osseous abnormality. Bilateral anterior rib fractures are present, nonacute appearing. IMPRESSION: No acute pulmonary embolism. Mild septal thickening in the lungs, likely edema. No significant effusions or airspace consolidation. Small pulmonary nodules under 6 mm, if the patient is considered at elevated risk for pulmonary malignancy, consider optional [address] follow-up. Other findings above. Dictated by: Mike Klein M.D. on 09/17/2025 at 21:35 Approved by: Mike Klein M.D. on 09/17/2025 at 21:40
--- NOTE | 2025-09-17 19:17 | RT ---
Patient off BIpap at this time, having a snack while on room air. 96%
--- NOTE | 2025-09-17 20:04 | PC.NURSE ---
Pt removes and replaces bipap at will. educated on need to keep in place.
--- NOTE | 2025-09-17 20:35 | PC.NURSE ---
Pt has been climbing out of bed without RN. Educated stallion manager galeano use and helped back to bed. States she is worried about her phone and jacket.
--- NOTE | 2025-09-17 21:23 | PC.NURSE ---
pt sitting in door way in w/c and vistor sitting on floor outside of door, asked pt to go back in room attempted to explain that it was a HIPPA violation to be at the doorway where they could over hear about other pts the visitor stated i'm not even listening attempted to explain that it did not matter that it was a privacy issue. pt started yelling why are you trying to start something everytime you see me you try to start something, I'm not going to be cooped up in this room.
--- NOTE | 2025-09-17 21:24 | W.PC.EDHO ---
Handoff/shift report received from AKIN Du
--- NOTE | 2025-09-17 21:35 | PC.NURSE ---
Pt in wheelchair outside of room in hallway. Educated pt on staying in room. Pt started yelling at this nurse and stated I want to go home, I am not staying here. Pt removed top half of gown while in hallway exposing herself from the waist up and refused to put gown back on.
--- NOTE | 2025-09-17 22:10 | PC.NURSE ---
Pt refused to allow nurse to monitor vitals. Port access was heparin locked and access was discontinued. No bleeding or bruising present at time of port access discontinuance.
== END 2025-09-17 22:30 | disposition home or self-care (01) ==
PROVIDERS: Family Medicine; Emergency Provider Family Medicine; Family Provider Physician Assistant; PCP Family Medicine
DX: I50.9 Heart failure, unspecified (principal); R06.02 Shortness of breath
CPT/HCPCS: 71045; 71275; 80053; 82805; 83605; 83690; 83735; 83880; 84484; 85025; 87040; 87633; 93005; 94660; 96374; 96375; 96376; 99284; J1642; J2060; J2919; Q9967